=== PATIENT | male | born 1945 | race Caucasian/White ===

== ENCOUNTER 2022-02-07 19:24 | Emergency (ER) | payer BC ==
[2022-02-07 19:32] VITALS: BP 164/81; PULSE 85; RESP 16; TEMP 99.4; BMI 15.0
[2022-02-07] MEDS ORDERED: CIPROFLOXACIN 500 MG TABLET (RESTRICTED TO ID) PO ONE (20:11)
[2022-02-07 20:24] LABS: EPITHELIAL CELLS FEW /hpf
[2022-02-07 20:34] LABS: HEMOGLOBIN 11.6 G/dL (11.7-16.9); MCHC 34.2 g/dl (32.0-35.9); MEAN CELL VOLUME 93.5 fl (80-96); MEAN PLT VOLUME 9.1 fl (7.5-11.1); PLATELET COUNT 347.6 10^3/uL (134-434); RBC 3.64 10^6/uL (4.00-5.60); WHITE BLOOD COUNT 11.1 10^3/uL (4.0-10.8)
[2022-02-07] MEDS ORDERED: CIPROFLOXACIN 400 MG/D5W 400 MG/200 ML IVPB IVPB ONE (20:46)
[2022-02-07 21:03] LABS: ALBUMIN 4.6 g/dl (3.4-5.0); BILIRUBIN,TOTAL 0.8 mg/dl (0.2-1); CALCIUM 9.7 mg/dl (8.5-10); CREATININE 0.9 mg/dl (0.55-1.3); TOT PROT 7.4 g/dl (6.4-8.2)
[2022-02-07 22:35] LABS: PLATELET ESTIMATE ADEQUATE
== END 2022-02-07 22:28 | disposition home or self-care (01) ==
LOC: FER 19:24
PROC: 3E033GC Introduction of Other Therapeutic Substance into Peripheral Vein, Percutaneous Approach (ICD-10-PCS; principal; 2022-02-07)
DX: R33.9 Retention of urine, unspecified (principal)
CPT/HCPCS: 0241U-QW; 36415; 74176-TC; 80053; 81003; 81015; 85025; 87086; 87186; 99285-25

== ENCOUNTER 2022-03-08 17:17 | Emergency (ER) | payer BC ==
[2022-03-08 18:28] VITALS: BP 172/90; PULSE 93; RESP 18; TEMP 99; BMI 15.0
== END 2022-03-08 19:10 | disposition home or self-care (01) ==
LOC: FER 17:17
DX: N39.0 Urinary tract infection, site not specified (principal); T83.028A Displacement of other urinary catheter, initial encounter
CPT/HCPCS: 81003; 81015; 87086; 99283-25

== ENCOUNTER 2022-11-03 14:42 | Inpatient (IN) | payer BC, OTHER ==
[2022-11-03] MEDS ORDERED: SODIUM CHLORIDE 1,000 ML IV STA (14:51)
[2022-11-03 15:21] LABS: HEMATOCRIT 33.8 % (35.4-49); HEMOGLOBIN 11.3 G/dL (11.7-16.9); MCH 32.7 pg (25.7-33.7); MCHC 33.5 g/dl (32.0-35.9); MEAN CELL VOLUME 97.6 fl (80-96); MEAN PLT VOLUME 10.5 fl (7.5-11.1); PLATELET COUNT 176.7 10^3/uL (134-434); RBC 3.46 10^6/uL (4.00-5.60); RDW 14.4 % (11.9-15.9); WHITE BLOOD COUNT 13.9 10^3/uL (4.0-10.8)
[2022-11-03 15:32] LABS: ALBUMIN 3.9 g/dl (3.4-5.0); BILIRUBIN,TOTAL 0.8 mg/dl (0.2-1); BLOOD UREA NITROGEN 91.6 mg/dl (7-18); CALCIUM 8.7 mg/dl (8.5-10.1); CREATININE 5.3 mg/dl (0.6-1.3); POTASSIUM 3.7 mmol/L (3.5-5.1); SGOT/AST 16.2 U/L (15-37); SGPT/ALT 3.8 U/L (7-52); TOT PROT 6.3 g/dl (6.4-8.2)
[2022-11-03] MEDS ORDERED: SODIUM CHLORIDE 1,000 ML IV SCH (16:15)
[2022-11-03 16:21] LABS: EPITHELIAL CELLS RARE /hpf
[2022-11-04] MEDS: CARBIDOPA/LEVODOPA 25/100 TABLET (FP) PO SCH ×2 (10:49→18:01)
[2022-11-04 11:06] LABS: HEMATOCRIT 33.8 % (35.4-49); HEMOGLOBIN 11.3 G/dL (11.7-16.9); MCH 32.8 pg (25.7-33.7); MCHC 33.4 g/dl (32.0-35.9); MEAN CELL VOLUME 98.4 fl (80-96); MEAN PLT VOLUME 10.7 fl (7.5-11.1); PLATELET COUNT 152.3 10^3/uL (134-434); RBC 3.44 10^6/uL (4.00-5.60); RDW 15.6 % (11.9-15.9); WHITE BLOOD COUNT 11.5 10^3/uL (4.0-10.8)
[2022-11-04 11:22] LABS: ALBUMIN 3.3 g/dl (3.4-5.0); BILIRUBIN,TOTAL 0.8 mg/dl (0.2-1); CALCIUM 8.5 mg/dl (8.5-10.1); CREATININE 1.7 mg/dl (0.6-1.3); POTASSIUM 3.5 mmol/L (3.5-5.1); SGOT/AST 24.2 U/L (15-37); SGPT/ALT 10.4 U/L (7-52); TOT PROT 5.3 g/dl (6.4-8.2)
[2022-11-04] MEDS: POTASSIUM CHLORIDE 10 MEQ in SODIUM CHLORIDE 0.45% 1,000 ML IVPB SCH (22:32)
[2022-11-05 08:09] LABS: ALBUMIN 3.3 g/dl (3.4-5.0); BILIRUBIN,TOTAL 0.8 mg/dl (0.2-1); BLOOD UREA NITROGEN 50.7 mg/dl (7-18); CALCIUM 8.5 mg/dl (8.5-10.1); CREATININE 1.2 mg/dl (0.6-1.3); POTASSIUM 3.7 mmol/L (3.5-5.1); SGOT/AST 19.9 U/L (15-37); SGPT/ALT 13.7 U/L (7-52); TOT PROT 5.2 g/dl (6.4-8.2)
[2022-11-05] MEDS: POTASSIUM CHLORIDE 10 MEQ in SODIUM CHLORIDE 0.45% 1,000 ML IVPB SCH (08:20)
[2022-11-05] MEDS: CARBIDOPA/LEVODOPA 25/100 TABLET (FP) PO SCH ×3 (08:20→21:04)
[2022-11-05] MEDS: POTASSIUM CHLORIDE 10 MEQ in DEXTROSE 5%-WATER - 1,000 ML IV SCH (09:42)
[2022-11-05] MEDS: amLODIPine BESYLATE 5 MG TABLET (FP) PO SCH (09:42)
[2022-11-05 09:46] LABS: HEMATOCRIT 33.8 % (35.4-49); HEMOGLOBIN 10.9 GM/dL (11.7-16.9); MCH 30.9 pg (25.7-33.7); MCHC 32.3 g/dl (32.0-35.9); MEAN CELL VOLUME 95.6 fl (80-96); MEAN PLT VOLUME 11.5 fl (7.5-11.1); PLATELET COUNT 157 10^3/uL (134-434); RBC 3.53 M/mm3 (4.00-5.60); RDW 14.2 % (11.9-15.9)
[2022-11-05] MEDS ORDERED: OLANZapine 2.5 MG TABLET PO SCH (10:00)
[2022-11-05 10:34] LABS: ANISOCYTOSIS 2+; MACROCYTOSIS 2+
[2022-11-05 10:56] VITALS: BMI 14.2
[2022-11-05] MEDS: AMINO ACIDS/PROTEIN HYDROLYS 30 ML LIQUID.PKT PO SCH ×2 (12:32→16:56)
[2022-11-05 16:52] LABS: BLOOD UREA NITROGEN 45.4 mg/dl (7-18); CREATININE 1.1 mg/dl (0.6-1.3)
[2022-11-05 16:53] LABS: CALCIUM 8.5 mg/dl (8.5-10.1); POTASSIUM 3.7 mmol/L (3.5-5.1)
[2022-11-05] MEDS: HEPARIN NA (PORCINE) 5,000 UNITS/ML 1ML VIAL SQ SCH (21:04)
[2022-11-05 23:19] LABS: LACTIC ACID 2.5 mmol/L (0.4-2.0)
[2022-11-06] MEDS: CARBIDOPA/LEVODOPA 25/100 TABLET (FP) PO SCH ×4 (06:26→18:03)
[2022-11-06] MEDS ORDERED: ACETAMINOPHEN 500 MG TABLET (FP) PO PRN (07:09)
[2022-11-06] MEDS ORDERED: CEFTRIAXONE 1 GM in DEXTROSE 5%-WATER - 50 ML IVPB ONE (07:30)
[2022-11-06 08:03] LABS: BILIRUBIN,TOTAL 0.9 mg/dl (0.2-1); BLOOD UREA NITROGEN 36.8 mg/dl (7-18); CREATININE 0.9 mg/dl (0.6-1.3); MAGNESIUM 2.1 mg/dL (1.8-2.4); PHOSPHOROUS 1.93 (2.5-4.9); POTASSIUM 3.6 mmol/L (3.5-5.1); SGOT/AST 13.7 U/L (15-37); TOT PROT 4.8 g/dl (6.4-8.2)
[2022-11-06 08:13] LABS: EPITHELIAL CELLS RARE /hpf
[2022-11-06] MEDS: AMINO ACIDS/PROTEIN HYDROLYS 30 ML LIQUID.PKT PO SCH ×3 (08:30→18:03)
[2022-11-06] MEDS ORDERED: POTASSIUM PHOSPHATE 15 MM in DEXTROSE 5%-WATER - 250 ML IVPB ONE (09:15)
[2022-11-06] MEDS: amLODIPine BESYLATE 5 MG TABLET (FP) PO SCH (09:53)
[2022-11-06] MEDS: HEPARIN NA (PORCINE) 5,000 UNITS/ML 1ML VIAL SQ SCH ×2 (09:54→21:35)
[2022-11-06] MEDS: POTASSIUM CHLORIDE 10 MEQ in DEXTROSE 5%-WATER - 1,000 ML IV SCH ×2 (09:55→11:46)
[2022-11-06 10:33] LABS: BASO % 0.6 % (0-2.0); EOS % 0.1 % (0-4.5); HEMATOCRIT 31.5 % (35.4-49); HEMOGLOBIN 10.1 GM/dL (11.7-16.9); LYMPH % 5.5 % (8-40); MCH 30.9 pg (25.7-33.7); MCHC 32.2 g/dl (32.0-35.9); MEAN CELL VOLUME 95.9 fl (80-96); MEAN PLT VOLUME 11.7 fl (7.5-11.1); MONO % 13.9 % (3.8-10.2); NEUT % 79.9 % (42.8-82.8); PLATELET COUNT 148 10^3/uL (134-434); RBC 3.28 M/mm3 (4.00-5.60); RDW 14.2 % (11.9-15.9); WHITE BLOOD COUNT 14.4 K/mm3 (4.0-10.0)
[2022-11-06] MEDS ORDERED: NAPH,MB-DB/K PH,MBDB POWDER PACKET PO ONE (11:27)
[2022-11-06] MEDS: ZINC SULFATE 220 MG CAPSULE (FP) PO SCH (11:41)
[2022-11-06] MEDS: LACTOBACILLUS ACIDOPHILUS 1 TABLET PO SCH (11:41)
[2022-11-06] MEDS: ASCORBIC ACID 500 MG TABLET (FP) PO SCH (11:41)
[2022-11-06] MEDS ORDERED: VANCOMYCIN 1 GM in D5W (PRE-DOCKED) 1,000 MG/250 ML (RESTRICTED TO ID ONLY IVPB ONE (22:14)
[2022-11-06] MEDS ORDERED: VANCOMYCIN/WATER FOR INJ (PEG) 1,000 MG/200 ML BAG IVPB ONE (22:30)
[2022-11-07] MEDS: CARBIDOPA/LEVODOPA 25/100 TABLET (FP) PO SCH ×5 (06:36→19:09)
[2022-11-07] MEDS ORDERED: VANCOMYCIN 750 MG in DEXTROSE 5%-WATER - 150 ML IVPB ONE (07:30)
[2022-11-07 07:47] LABS: BILIRUBIN,TOTAL 0.9 mg/dl (0.2-1); BLOOD UREA NITROGEN 29.6 mg/dl (7-18); CALCIUM 7.8 mg/dl (8.5-10.1); PHOSPHOROUS 2.65 (2.5-4.9); POTASSIUM 3.5 mmol/L (3.5-5.1); SGOT/AST 15.2 U/L (15-37); SGPT/ALT 8.7 U/L (7-52); TOT PROT 5.1 g/dl (6.4-8.2)
[2022-11-07] MEDS: AMINO ACIDS/PROTEIN HYDROLYS 30 ML LIQUID.PKT PO SCH ×4 (08:13→18:12)
[2022-11-07 09:10] LABS: BASO % 0.8 % (0-2.0); EOS % 0.5 % (0-4.5); HEMATOCRIT 31.3 % (35.4-49); HEMOGLOBIN 9.9 GM/dL (11.7-16.9); LYMPH % 7.3 % (8-40); MCH 30.5 pg (25.7-33.7); MCHC 31.7 g/dl (32.0-35.9); MEAN PLT VOLUME 11.9 fl (7.5-11.1); MONO % 9.8 % (3.8-10.2); NEUT % 81.6 % (42.8-82.8); PLATELET COUNT 182 10^3/uL (134-434); RBC 3.26 M/mm3 (4.00-5.60); RDW 14.2 % (11.9-15.9)
[2022-11-07] MEDS: ZINC SULFATE 220 MG CAPSULE (FP) PO SCH (10:16)
[2022-11-07] MEDS: LACTOBACILLUS ACIDOPHILUS 1 TABLET PO SCH (10:17)
[2022-11-07] MEDS: amLODIPine BESYLATE 5 MG TABLET (FP) PO SCH (10:17)
[2022-11-07] MEDS: HEPARIN NA (PORCINE) 5,000 UNITS/ML 1ML VIAL SQ SCH ×2 (10:19→22:30)
[2022-11-07] MEDS: ASCORBIC ACID 500 MG TABLET (FP) PO SCH (10:20)
[2022-11-07] MEDS: CEFTRIAXONE 1 GM in DEXTROSE 5%-WATER - 50 ML IVPB SCH (10:21)
[2022-11-07] MEDS: POTASSIUM CHLORIDE 10 MEQ in DEXTROSE 5%-WATER - 1,000 ML IV SCH (12:05)
[2022-11-07] MEDS ORDERED: POTASSIUM CHLORIDE ORAL LIQUID 20 MEQ/15 ML PO ONE ×2 (18:53→22:45)
[2022-11-07] MEDS ORDERED: VANCOMYCIN/WATER FOR INJ (PEG) 750 MG/150 ML BAG IVPB ONE (23:00)
[2022-11-07] MEDS: VANCOMYCIN/WATER FOR INJ (PEG) 750 MG/150 ML BAG IVPB SCH (23:30)
[2022-11-08] MEDS: CARBIDOPA/LEVODOPA 25/100 TABLET (FP) PO SCH (05:15)
[2022-11-08] MEDS: POTASSIUM CHLORIDE 10 MEQ in DEXTROSE 5%-WATER - 1,000 ML IV SCH ×3 (05:15→21:44)
[2022-11-08 07:50] LABS: ALBUMIN 2.9 g/dl (3.4-5.0); BILIRUBIN,TOTAL 0.7 mg/dl (0.2-1); BLOOD UREA NITROGEN 22.9 mg/dl (7-18); CALCIUM 7.8 mg/dl (8.5-10.1); CREATININE 0.8 mg/dl (0.6-1.3); MAGNESIUM 1.9 mg/dL (1.8-2.4); PHOSPHOROUS 2.35 (2.5-4.9); POTASSIUM 3.7 mmol/L (3.5-5.1); SGOT/AST 17.5 U/L (15-37)
[2022-11-08] MEDS: AMINO ACIDS/PROTEIN HYDROLYS 30 ML LIQUID.PKT PO SCH (08:28)
[2022-11-08] MEDS ORDERED: POTASSIUM PHOSPHATE 15 MM in DEXTROSE 5%-WATER - 250 ML IVPB ONE (08:40)
[2022-11-08 10:05] LABS: BASO % 0.2 % (0-2.0); EOS % 1.3 % (0-4.5); HEMATOCRIT 27.7 % (35.4-49); HEMOGLOBIN 8.9 GM/dL (11.7-16.9); LYMPH % 6.8 % (8-40); MCH 30.7 pg (25.7-33.7); MEAN CELL VOLUME 95.7 fl (80-96); MEAN PLT VOLUME 11.5 fl (7.5-11.1); MONO % 7.9 % (3.8-10.2); NEUT % 83.8 % (42.8-82.8); PLATELET COUNT 223 10^3/uL (134-434); RBC 2.89 M/mm3 (4.00-5.60); RDW 14.4 % (11.9-15.9); WHITE BLOOD COUNT 15.2 K/mm3 (4.0-10.0)
[2022-11-08] MEDS ORDERED: ACETAMINOPHEN 1000 MG/100 ML BAG IVPB ONE (10:15)
[2022-11-08] MEDS: HEPARIN NA (PORCINE) 5,000 UNITS/ML 1ML VIAL SQ SCH ×2 (10:31→21:44)
[2022-11-08] MEDS: CEFTRIAXONE 1 GM in DEXTROSE 5%-WATER - 50 ML IVPB SCH (10:43)
[2022-11-08] MEDS ORDERED: AMINO ACIDS/PROTEIN HYDROLYS 30 ML LIQUID.PKT NGT SCH (11:17)
[2022-11-08] MEDS: COLLAGENASE CLOSTRIDIUM HIST. 30 GRAMS TUBE TP SCH (12:06)
[2022-11-08] MEDS: CARBIDOPA/LEVODOPA 25/100 TABLET (FP) NGT SCH ×2 (14:55→18:30)
[2022-11-08] MEDS ORDERED: THIAMINE HCL 200 MG/2 ML VIAL IVPB ONE (15:53)
[2022-11-08] MEDS: AMINO ACIDS/PROTEIN HYDROLYS 30 ML LIQUID.PKT NGT SCH (18:30)
[2022-11-08] MEDS: ACETAMINOPHEN 650 MG/20.3 ML ORAL SOLUTION (CUPS) NGT PRN (22:52)
[2022-11-08] MEDS ORDERED: VANCOMYCIN/WATER FOR INJ (PEG) 750 MG/150 ML BAG IVPB SCH (23:00)
[2022-11-08] MEDS: VANCOMYCIN/WATER FOR INJ (PEG) 750 MG/150 ML BAG IVPB SCH (23:22)
[2022-11-09] MEDS: CARBIDOPA/LEVODOPA 25/100 TABLET (FP) NGT SCH ×4 (05:39→17:14)
[2022-11-09 09:15] LABS: BASO % 0.7 % (0-2.0); EOS % 1.2 % (0-4.5); HEMATOCRIT 27.5 % (35.4-49); HEMOGLOBIN 8.9 GM/dL (11.7-16.9); MCH 30.9 pg (25.7-33.7); MCHC 32.5 g/dl (32.0-35.9); MEAN CELL VOLUME 95.2 fl (80-96); NEUT % 80.1 % (42.8-82.8); PLATELET COUNT 329 10^3/uL (134-434); RBC 2.89 M/mm3 (4.00-5.60); RDW 14.1 % (11.9-15.9); WHITE BLOOD COUNT 11.9 K/mm3 (4.0-10.0)
[2022-11-09] MEDS: AMINO ACIDS/PROTEIN HYDROLYS 30 ML LIQUID.PKT NGT SCH ×3 (09:25→17:14)
[2022-11-09] MEDS: CEFTRIAXONE 1 GM in DEXTROSE 5%-WATER - 50 ML IVPB SCH (09:25)
[2022-11-09] MEDS: ASCORBIC ACID 500 MG TABLET (FP) NGT SCH (09:26)
[2022-11-09] MEDS: LACTOBACILLUS ACIDOPHILUS 1 TABLET NGT SCH (09:26)
[2022-11-09] MEDS: ZINC SULFATE 220 MG CAPSULE (FP) NGT SCH (09:26)
[2022-11-09] MEDS: amLODIPine BESYLATE 5 MG TABLET (FP) NGT SCH (09:26)
[2022-11-09] MEDS: POLYETHYLENE GLYCOL (HEALTHYLAX) 3350 17 GM PACKET NGT SCH (09:27)
[2022-11-09 09:29] LABS: POTASSIUM 3.9 mmol/L (3.5-5.1)
[2022-11-09] MEDS: POTASSIUM CHLORIDE 10 MEQ in DEXTROSE 5%-WATER - 1,000 ML IV SCH ×3 (09:31→22:24)
[2022-11-09] MEDS: HEPARIN NA (PORCINE) 5,000 UNITS/ML 1ML VIAL SQ SCH ×2 (09:32→22:22)
[2022-11-09 09:33] LABS: CALCIUM 7.8 mg/dL (8.5-10.1)
[2022-11-09 09:34] LABS: ALBUMIN 2.4 g/dl (3.4-5.0); BLOOD UREA NITROGEN 26.3 mg/dL (7-18); MAGNESIUM 1.9 mg/dL (1.8-2.4)
[2022-11-09 09:37] LABS: CREATININE 0.9 mg/dL (0.55-1.3); PHOSPHOROUS 2.6 mg/dL (2.5-4.9)
[2022-11-09 09:39] LABS: BILIRUBIN,TOTAL 0.8 mg/dL (0.2-1); TOT PROT 5.3 g/dl (6.4-8.2)
[2022-11-09] MEDS ORDERED: POLYETHYLENE GLYCOL (HEALTHYLAX) 3350 17 GM PACKET GT SCH (10:00)
[2022-11-09] MEDS: THIAMINE HCL 200 MG/2 ML VIAL IVPB SCH (10:44)
[2022-11-09] MEDS: COLLAGENASE CLOSTRIDIUM HIST. 30 GRAMS TUBE TP SCH (10:44)
[2022-11-09] MEDS: DAPTOMYCIN IVPB SCH (17:14)
[2022-11-09] MEDS: SODIUM CHLORIDE IVPB SCH (17:14)
[2022-11-10] MEDS: POTASSIUM CHLORIDE 10 MEQ in DEXTROSE 5%-WATER - 1,000 ML IV SCH ×2 (03:05→11:07)
[2022-11-10] MEDS: CARBIDOPA/LEVODOPA 25/100 TABLET (FP) NGT SCH ×4 (05:37→17:34)
[2022-11-10 10:14] LABS: BASO % 0.3 % (0-2.0); HEMATOCRIT 26.9 % (35.4-49); HEMOGLOBIN 8.7 GM/dL (11.7-16.9); LYMPH % 8.5 % (8-40); MCH 29.7 pg (25.7-33.7); MCHC 32.3 g/dl (32.0-35.9); MEAN PLT VOLUME 10.4 fl (7.5-11.1); MONO % 6.2 % (3.8-10.2); PLATELET COUNT 390 10^3/uL (134-434); RBC 2.92 M/mm3 (4.00-5.60); RDW 14.3 % (11.9-15.9); WHITE BLOOD COUNT 14.5 K/mm3 (4.0-10.0)
[2022-11-10] MEDS: THIAMINE HCL 200 MG/2 ML VIAL IVPB SCH (10:44)
[2022-11-10] MEDS: ZINC SULFATE 220 MG CAPSULE (FP) NGT SCH (10:44)
[2022-11-10 11:04] LABS: POTASSIUM 3.8 mmol/L (3.5-5.1)
[2022-11-10] MEDS: LACTOBACILLUS ACIDOPHILUS 1 TABLET NGT SCH (11:06)
[2022-11-10] MEDS: AMINO ACIDS/PROTEIN HYDROLYS 30 ML LIQUID.PKT NGT SCH ×3 (11:06→17:34)
[2022-11-10] MEDS: ASCORBIC ACID 500 MG TABLET (FP) NGT SCH (11:06)
[2022-11-10] MEDS: amLODIPine BESYLATE 5 MG TABLET (FP) NGT SCH (11:06)
[2022-11-10] MEDS: POLYETHYLENE GLYCOL (HEALTHYLAX) 3350 17 GM PACKET NGT SCH (11:06)
[2022-11-10] MEDS: HEPARIN NA (PORCINE) 5,000 UNITS/ML 1ML VIAL SQ SCH ×2 (11:06→22:17)
[2022-11-10 11:07] LABS: CALCIUM 8.3 mg/dL (8.5-10.1)
[2022-11-10 11:08] LABS: ALBUMIN 2.5 g/dl (3.4-5.0); BLOOD UREA NITROGEN 25.3 mg/dL (7-18); MAGNESIUM 1.9 mg/dL (1.8-2.4)
[2022-11-10 11:11] LABS: CREATININE 0.8 mg/dL (0.55-1.3); PHOSPHOROUS 2.4 mg/dL (2.5-4.9)
[2022-11-10 11:12] LABS: BILIRUBIN,TOTAL 0.5 mg/dL (0.2-1); TOT PROT 5.5 g/dl (6.4-8.2)
[2022-11-10] MEDS ORDERED: POTASSIUM PHOSPHATE 15 MM in DEXTROSE 5%-WATER - 250 ML IVPB ONE (13:45)
[2022-11-10] MEDS: SODIUM CHLORIDE IVPB SCH (17:30)
[2022-11-10] MEDS: DAPTOMYCIN IVPB SCH (17:30)
[2022-11-10] MEDS: COLLAGENASE CLOSTRIDIUM HIST. 30 GRAMS TUBE TP SCH (17:35)
[2022-11-10] MEDS: ACETAMINOPHEN 650 MG/20.3 ML ORAL SOLUTION (CUPS) NGT PRN (22:17)
[2022-11-11] MEDS: CARBIDOPA/LEVODOPA 25/100 TABLET (FP) NGT SCH ×4 (05:55→18:22)
[2022-11-11] MEDS: THIAMINE HCL 200 MG/2 ML VIAL IVPB SCH (10:33)
[2022-11-11] MEDS: POLYETHYLENE GLYCOL (HEALTHYLAX) 3350 17 GM PACKET NGT SCH (10:34)
[2022-11-11] MEDS: AMINO ACIDS/PROTEIN HYDROLYS 30 ML LIQUID.PKT NGT SCH ×3 (10:34→17:31)
[2022-11-11] MEDS: amLODIPine BESYLATE 5 MG TABLET (FP) NGT SCH (10:35)
[2022-11-11] MEDS: ZINC SULFATE 220 MG CAPSULE (FP) NGT SCH (10:35)
[2022-11-11 10:36] LABS: HEMATOCRIT 25.3 % (35.4-49); HEMOGLOBIN 8.2 GM/dL (11.7-16.9); MCH 30.6 pg (25.7-33.7); MCHC 32.3 g/dl (32.0-35.9); MEAN CELL VOLUME 94.6 fl (80-96); PLATELET COUNT 381 10^3/uL (134-434); RBC 2.67 M/mm3 (4.00-5.60); RDW 14.3 % (11.9-15.9); WHITE BLOOD COUNT 16.7 K/mm3 (4.0-10.0)
[2022-11-11] MEDS: LACTOBACILLUS ACIDOPHILUS 1 TABLET NGT SCH (10:36)
[2022-11-11] MEDS: ASCORBIC ACID 500 MG TABLET (FP) NGT SCH (10:36)
[2022-11-11] MEDS: COLLAGENASE CLOSTRIDIUM HIST. 30 GRAMS TUBE TP SCH (10:37)
[2022-11-11] MEDS: HEPARIN NA (PORCINE) 5,000 UNITS/ML 1ML VIAL SQ SCH ×2 (10:37→22:52)
[2022-11-11 11:04] LABS: ALBUMIN 2.3 g/dl (3.4-5.0); BLOOD UREA NITROGEN 40.4 mg/dL (7-18); CALCIUM 7.7 mg/dL (8.5-10.1)
[2022-11-11 11:07] LABS: CREATININE 1.2 mg/dL (0.55-1.3); PHOSPHOROUS 3.8 mg/dL (2.5-4.9)
[2022-11-11 11:09] LABS: BILIRUBIN,TOTAL 0.4 mg/dL (0.2-1); TOT PROT 5.1 g/dl (6.4-8.2)
[2022-11-11] MEDS ORDERED: LACTATED RINGERS SOLUTION 1,000 ML/1,000 ML INFUS.BAG IV SCH (14:00)
[2022-11-11 14:06] LABS: RETICULOCYTES 0.52 % (0.5-1.5)
[2022-11-11] MEDS: SODIUM CHLORIDE IVPB SCH (17:31)
[2022-11-11] MEDS: DAPTOMYCIN IVPB SCH (17:31)
[2022-11-12] MEDS: CARBIDOPA/LEVODOPA 25/100 TABLET (FP) NGT SCH ×4 (06:05→18:05)
[2022-11-12 09:15] LABS: HEMATOCRIT 28.3 % (35.4-49); MCH 30.1 pg (25.7-33.7); MCHC 31.9 g/dl (32.0-35.9); MEAN CELL VOLUME 94.3 fl (80-96); MEAN PLT VOLUME 11.1 fl (7.5-11.1); PLATELET COUNT 512 10^3/uL (134-434); RDW 14.4 % (11.9-15.9); WHITE BLOOD COUNT 20.1 K/mm3 (4.0-10.0)
[2022-11-12 09:41] LABS: POTASSIUM 4.9 mmol/L (3.5-5.1)
[2022-11-12 10:07] LABS: CALCIUM 8.8 mg/dL (8.5-10.1)
[2022-11-12 10:08] LABS: ALBUMIN 2.6 g/dl (3.4-5.0); MAGNESIUM 2.4 mg/dL (1.8-2.4)
[2022-11-12 10:09] LABS: BILIRUBIN,TOTAL 0.4 mg/dL (0.2-1)
[2022-11-12 10:11] LABS: CREATININE 1.2 mg/dL (0.55-1.3)
[2022-11-12] MEDS: POLYETHYLENE GLYCOL (HEALTHYLAX) 3350 17 GM PACKET NGT SCH (10:21)
[2022-11-12] MEDS: AMINO ACIDS/PROTEIN HYDROLYS 30 ML LIQUID.PKT NGT SCH ×3 (10:21→18:06)
[2022-11-12] MEDS: amLODIPine BESYLATE 5 MG TABLET (FP) NGT SCH (10:21)
[2022-11-12] MEDS: LACTOBACILLUS ACIDOPHILUS 1 TABLET NGT SCH (10:21)
[2022-11-12] MEDS: ASCORBIC ACID 500 MG TABLET (FP) NGT SCH (10:22)
[2022-11-12] MEDS: ZINC SULFATE 220 MG CAPSULE (FP) NGT SCH (10:22)
[2022-11-12] MEDS: COLLAGENASE CLOSTRIDIUM HIST. 30 GRAMS TUBE TP SCH (10:33)
[2022-11-12] MEDS: HEPARIN NA (PORCINE) 5,000 UNITS/ML 1ML VIAL SQ SCH ×2 (10:34→21:45)
[2022-11-12] MEDS: DAPTOMYCIN IVPB SCH (16:39)
[2022-11-12] MEDS: SODIUM CHLORIDE IVPB SCH (16:39)
[2022-11-13] MEDS: CARBIDOPA/LEVODOPA 25/100 TABLET (FP) NGT SCH ×4 (06:49→18:19)
[2022-11-13] MEDS: AMINO ACIDS/PROTEIN HYDROLYS 30 ML LIQUID.PKT NGT SCH ×3 (10:08→16:33)
[2022-11-13] MEDS: amLODIPine BESYLATE 5 MG TABLET (FP) NGT SCH (10:08)
[2022-11-13] MEDS: LACTOBACILLUS ACIDOPHILUS 1 TABLET NGT SCH (10:08)
[2022-11-13] MEDS: ASCORBIC ACID 500 MG TABLET (FP) NGT SCH (10:09)
[2022-11-13] MEDS: ZINC SULFATE 220 MG CAPSULE (FP) NGT SCH (10:10)
[2022-11-13] MEDS: POLYETHYLENE GLYCOL (HEALTHYLAX) 3350 17 GM PACKET NGT SCH (10:11)
[2022-11-13] MEDS: HEPARIN NA (PORCINE) 5,000 UNITS/ML 1ML VIAL SQ SCH ×2 (10:11→21:23)
[2022-11-13] MEDS: COLLAGENASE CLOSTRIDIUM HIST. 30 GRAMS TUBE TP SCH (10:21)
[2022-11-13 10:24] LABS: POTASSIUM 4.6 mmol/L (3.5-5.1)
[2022-11-13 10:26] LABS: CALCIUM 8.3 mg/dL (8.5-10.1)
[2022-11-13 10:27] LABS: ALBUMIN 2.2 g/dl (3.4-5.0); BLOOD UREA NITROGEN 34.5 mg/dL (7-18)
[2022-11-13 10:30] LABS: CREATININE 0.9 mg/dL (0.55-1.3)
[2022-11-13 10:31] LABS: BILIRUBIN,TOTAL 0.3 mg/dL (0.2-1); TOT PROT 5.1 g/dl (6.4-8.2)
[2022-11-13 10:57] LABS: BASO % 0.5 % (0-2.0); EOS % 1.1 % (0-4.5); HEMATOCRIT 24.9 % (35.4-49); LYMPH % 7.1 % (8-40); MCHC 32.3 g/dl (32.0-35.9); MEAN CELL VOLUME 92.9 fl (80-96); MEAN PLT VOLUME 9.6 fl (7.5-11.1); MONO % 6.3 % (3.8-10.2); PLATELET COUNT 504 10^3/uL (134-434); RBC 2.68 M/mm3 (4.00-5.60); RDW 14.7 % (11.9-15.9); WHITE BLOOD COUNT 15.9 K/mm3 (4.0-10.0)
[2022-11-13] MEDS ORDERED: POTASSIUM PHOSPHATE 30 MM in DEXTROSE 5%-WATER - 500 ML IVPB ONE (12:49)
[2022-11-13] MEDS ORDERED: SODIUM CHLORIDE 0.45%/POT 20 MEQ/1,000 ML INFUS.BAG IV SCH (13:00)
[2022-11-13] MEDS: SODIUM CHLORIDE 0.45% 1,000 ML IV SCH (13:59)
[2022-11-13] MEDS: DAPTOMYCIN IVPB SCH (16:32)
[2022-11-13] MEDS: SODIUM CHLORIDE IVPB SCH (16:32)
[2022-11-13] MEDS: ACETAMINOPHEN 650 MG/20.3 ML ORAL SOLUTION (CUPS) NGT PRN (21:23)
[2022-11-14] MEDS: SODIUM CHLORIDE 0.45% 1,000 ML IV SCH ×3 (04:01→15:39)
[2022-11-14] MEDS: CARBIDOPA/LEVODOPA 25/100 TABLET (FP) NGT SCH ×4 (05:17→18:09)
[2022-11-14] MEDS: AMINO ACIDS/PROTEIN HYDROLYS 30 ML LIQUID.PKT NGT SCH ×3 (08:34→17:35)
[2022-11-14] MEDS: POLYETHYLENE GLYCOL (HEALTHYLAX) 3350 17 GM PACKET NGT SCH (09:50)
[2022-11-14] MEDS: ZINC SULFATE 220 MG CAPSULE (FP) NGT SCH (09:53)
[2022-11-14] MEDS: ASCORBIC ACID 500 MG TABLET (FP) NGT SCH (09:53)
[2022-11-14] MEDS: LACTOBACILLUS ACIDOPHILUS 1 TABLET NGT SCH (09:54)
[2022-11-14] MEDS: amLODIPine BESYLATE 5 MG TABLET (FP) NGT SCH (09:54)
[2022-11-14] MEDS: HEPARIN NA (PORCINE) 5,000 UNITS/ML 1ML VIAL SQ SCH ×2 (09:54→21:25)
[2022-11-14] MEDS ORDERED: POTASSIUM CHLORIDE ORAL LIQUID 20 MEQ/15 ML GT SCH (10:00)
[2022-11-14] MEDS ORDERED: POTASSIUM CHLORIDE ORAL LIQUID 20 MEQ/15 ML PO SCH (10:00)
[2022-11-14 10:37] LABS: HEMATOCRIT 25.9 % (35.4-49); HEMOGLOBIN 8.2 GM/dL (11.7-16.9); MCH 30.2 pg (25.7-33.7); MCHC 31.5 g/dl (32.0-35.9); MEAN CELL VOLUME 95.8 fl (80-96); MEAN PLT VOLUME 10.6 fl (7.5-11.1); PLATELET COUNT 541 10^3/uL (134-434); RDW 14.3 % (11.9-15.9); WHITE BLOOD COUNT 13.6 K/mm3 (4.0-10.0)
[2022-11-14 11:14] LABS: POTASSIUM 4.4 mmol/L (3.5-5.1)
[2022-11-14 11:31] LABS: ALBUMIN 2.4 g/dl (3.4-5.0); BLOOD UREA NITROGEN 22.6 mg/dL (7-18); CALCIUM 8.4 mg/dL (8.5-10.1)
[2022-11-14 11:34] LABS: CREATININE 0.7 mg/dL (0.55-1.3); PHOSPHOROUS 2.7 mg/dL (2.5-4.9)
[2022-11-14 11:36] LABS: BILIRUBIN,TOTAL 0.3 mg/dL (0.2-1); TOT PROT 5.5 g/dl (6.4-8.2)
[2022-11-14] MEDS: COLLAGENASE CLOSTRIDIUM HIST. 30 GRAMS TUBE TP SCH (11:42)
[2022-11-14] MEDS: DAPTOMYCIN IVPB SCH (16:23)
[2022-11-14] MEDS: SODIUM CHLORIDE IVPB SCH (16:23)
[2022-11-15] MEDS: CARBIDOPA/LEVODOPA 25/100 TABLET (FP) PO SCH ×4 (05:31→17:31)
[2022-11-15] MEDS: AMINO ACIDS/PROTEIN HYDROLYS 30 ML LIQUID.PKT PO SCH ×3 (09:00→17:12)
[2022-11-15 09:59] LABS: HEMATOCRIT 25.8 % (35.4-49); HEMOGLOBIN 8.3 GM/dL (11.7-16.9); MCH 30.3 pg (25.7-33.7); MCHC 32.1 g/dl (32.0-35.9); MEAN CELL VOLUME 94.5 fl (80-96); MEAN PLT VOLUME 10.6 fl (7.5-11.1); PLATELET COUNT 491 10^3/uL (134-434); RBC 2.73 M/mm3 (4.00-5.60); WHITE BLOOD COUNT 11.4 K/mm3 (4.0-10.0)
[2022-11-15] MEDS: VANCOMYCIN/WATER FOR INJ (PEG) 750 MG/150 ML BAG IVPB SCH (10:07)
[2022-11-15] MEDS: amLODIPine BESYLATE 5 MG TABLET (FP) PO SCH (10:08)
[2022-11-15 10:49] LABS: POTASSIUM 4.2 mmol/L (3.5-5.1)
[2022-11-15] MEDS: HEPARIN NA (PORCINE) 5,000 UNITS/ML 1ML VIAL SQ SCH ×2 (10:51→21:47)
[2022-11-15 11:10] LABS: CALCIUM 8.3 mg/dL (8.5-10.1)
[2022-11-15 11:11] LABS: ALBUMIN 2.3 g/dl (3.4-5.0); BLOOD UREA NITROGEN 20.2 mg/dL (7-18)
[2022-11-15 11:14] LABS: CREATININE 0.6 mg/dL (0.55-1.3)
[2022-11-15 11:15] LABS: BILIRUBIN,TOTAL 0.3 mg/dL (0.2-1); TOT PROT 5.5 g/dl (6.4-8.2)
[2022-11-15] MEDS: ZINC SULFATE 220 MG CAPSULE (FP) PO SCH (11:56)
[2022-11-15] MEDS: POLYETHYLENE GLYCOL (HEALTHYLAX) 3350 17 GM PACKET PO SCH (11:56)
[2022-11-15] MEDS: ASCORBIC ACID 500 MG TABLET (FP) PO SCH (11:57)
[2022-11-15] MEDS: LACTOBACILLUS ACIDOPHILUS 1 TABLET PO SCH (11:57)
[2022-11-15] MEDS: ACETAMINOPHEN 650 MG/20.3 ML ORAL SOLUTION (CUPS) PO PRN (13:13)
[2022-11-15] MEDS: COLLAGENASE CLOSTRIDIUM HIST. 30 GRAMS TUBE TP SCH (14:10)
[2022-11-15] MEDS: SODIUM CHLORIDE 0.45% 1,000 ML IV SCH (14:17)
[2022-11-16] MEDS: CARBIDOPA/LEVODOPA 25/100 TABLET (FP) PO SCH ×4 (06:39→17:48)
[2022-11-16 08:01] LABS: HEMATOCRIT 23.6 % (35.4-49); HEMOGLOBIN 7.7 GM/dL (11.7-16.9); MCH 30.1 pg (25.7-33.7); MCHC 32.7 g/dl (32.0-35.9); MEAN CELL VOLUME 92.1 fl (80-96); MEAN PLT VOLUME 9.6 fl (7.5-11.1); PLATELET COUNT 534 10^3/uL (134-434); RBC 2.56 M/mm3 (4.00-5.60); RDW 13.9 % (11.9-15.9); WHITE BLOOD COUNT 8.3 K/mm3 (4.0-10.0)
[2022-11-16 08:20] LABS: POTASSIUM 3.9 mmol/L (3.5-5.1)
[2022-11-16 08:22] LABS: CALCIUM 8.5 mg/dL (8.5-10.1)
[2022-11-16 08:23] LABS: ALBUMIN 2.1 g/dl (3.4-5.0); BLOOD UREA NITROGEN 16.2 mg/dL (7-18); MAGNESIUM 1.9 mg/dL (1.8-2.4)
[2022-11-16 08:26] LABS: CREATININE 0.6 mg/dL (0.55-1.3); PHOSPHOROUS 2.6 mg/dL (2.5-4.9)
[2022-11-16 08:27] LABS: BILIRUBIN,TOTAL 0.7 mg/dL (0.2-1)
[2022-11-16 08:28] LABS: TOT PROT 5.2 g/dl (6.4-8.2)
[2022-11-16] MEDS: HEPARIN NA (PORCINE) 5,000 UNITS/ML 1ML VIAL SQ SCH ×2 (09:51→21:27)
[2022-11-16] MEDS: ZINC SULFATE 220 MG CAPSULE (FP) PO SCH (09:51)
[2022-11-16] MEDS: LACTOBACILLUS ACIDOPHILUS 1 TABLET PO SCH (09:51)
[2022-11-16] MEDS: POLYETHYLENE GLYCOL (HEALTHYLAX) 3350 17 GM PACKET PO SCH (09:51)
[2022-11-16] MEDS: AMINO ACIDS/PROTEIN HYDROLYS 30 ML LIQUID.PKT PO SCH ×3 (09:51→17:48)
[2022-11-16] MEDS: ASCORBIC ACID 500 MG TABLET (FP) PO SCH (09:52)
[2022-11-16] MEDS: COLLAGENASE CLOSTRIDIUM HIST. 30 GRAMS TUBE TP SCH (10:11)
[2022-11-16] MEDS: VANCOMYCIN/WATER FOR INJ (PEG) 750 MG/150 ML BAG IVPB SCH (10:16)
[2022-11-16] MEDS: amLODIPine BESYLATE 5 MG TABLET (FP) PO SCH (10:17)
[2022-11-17] MEDS: CARBIDOPA/LEVODOPA 25/100 TABLET (FP) PO SCH ×4 (06:20→17:25)
[2022-11-17] MEDS: AMINO ACIDS/PROTEIN HYDROLYS 30 ML LIQUID.PKT PO SCH ×3 (08:21→17:07)
[2022-11-17 09:26] LABS: BASO % 2.7 % (0-2.0); HEMATOCRIT 23.4 % (35.4-49); HEMOGLOBIN 7.6 GM/dL (11.7-16.9); LYMPH % 9.6 % (8-40); MCH 30.2 pg (25.7-33.7); MCHC 32.4 g/dl (32.0-35.9); MEAN CELL VOLUME 93.2 fl (80-96); MEAN PLT VOLUME 10.4 fl (7.5-11.1); MONO % 6.4 % (3.8-10.2); NEUT % 80.3 % (42.8-82.8); PLATELET COUNT 511 10^3/uL (134-434); RBC 2.51 M/mm3 (4.00-5.60); RDW 13.8 % (11.9-15.9); WHITE BLOOD COUNT 7.8 K/mm3 (4.0-10.0)
[2022-11-17] MEDS: LACTOBACILLUS ACIDOPHILUS 1 TABLET PO SCH (09:31)
[2022-11-17] MEDS: POLYETHYLENE GLYCOL (HEALTHYLAX) 3350 17 GM PACKET PO SCH (09:31)
[2022-11-17] MEDS: HEPARIN NA (PORCINE) 5,000 UNITS/ML 1ML VIAL SQ SCH ×2 (09:31→22:32)
[2022-11-17] MEDS: amLODIPine BESYLATE 5 MG TABLET (FP) PO SCH (09:31)
[2022-11-17] MEDS: COLLAGENASE CLOSTRIDIUM HIST. 30 GRAMS TUBE TP SCH (09:33)
[2022-11-17] MEDS: ZINC SULFATE 220 MG CAPSULE (FP) PO SCH (09:33)
[2022-11-17] MEDS: ASCORBIC ACID 500 MG TABLET (FP) PO SCH (09:34)
[2022-11-17 09:48] LABS: POTASSIUM 3.9 mmol/L (3.5-5.1)
[2022-11-17 09:54] LABS: ALBUMIN 2.4 g/dl (3.4-5.0); CALCIUM 8.7 mg/dL (8.5-10.1)
[2022-11-17 09:55] LABS: BLOOD UREA NITROGEN 15.8 mg/dL (7-18)
[2022-11-17 09:57] LABS: CREATININE 0.6 mg/dL (0.55-1.3)
[2022-11-17 09:59] LABS: BILIRUBIN,TOTAL 0.4 mg/dL (0.2-1); TOT PROT 5.5 g/dl (6.4-8.2)
[2022-11-17] MEDS: VANCOMYCIN/WATER FOR INJ (PEG) 750 MG/150 ML BAG IVPB SCH (10:07)
[2022-11-17] MEDS: ACETAMINOPHEN 650 MG/20.3 ML ORAL SOLUTION (CUPS) PO PRN (14:21)
[2022-11-18] MEDS: CARBIDOPA/LEVODOPA 25/100 TABLET (FP) PO SCH ×4 (05:44→18:23)
[2022-11-18] MEDS: AMINO ACIDS/PROTEIN HYDROLYS 30 ML LIQUID.PKT PO SCH ×3 (09:01→17:18)
[2022-11-18] MEDS: LACTOBACILLUS ACIDOPHILUS 1 TABLET PO SCH (09:01)
[2022-11-18] MEDS: amLODIPine BESYLATE 5 MG TABLET (FP) PO SCH (09:01)
[2022-11-18] MEDS: ZINC SULFATE 220 MG CAPSULE (FP) PO SCH (09:01)
[2022-11-18] MEDS: HEPARIN NA (PORCINE) 5,000 UNITS/ML 1ML VIAL SQ SCH (09:01)
[2022-11-18] MEDS: VANCOMYCIN/WATER FOR INJ (PEG) 750 MG/150 ML BAG IVPB SCH (09:01)
[2022-11-18] MEDS: ASCORBIC ACID 500 MG TABLET (FP) PO SCH (09:01)
[2022-11-18] MEDS: COLLAGENASE CLOSTRIDIUM HIST. 30 GRAMS TUBE TP SCH (09:02)
[2022-11-18] MEDS: POLYETHYLENE GLYCOL (HEALTHYLAX) 3350 17 GM PACKET PO SCH (09:26)
[2022-11-18 09:34] LABS: BASO % 3.3 % (0-2.0); EOS % 0.5 % (0-4.5); HEMATOCRIT 24.6 % (35.4-49); LYMPH % 10.2 % (8-40); MCH 30.8 pg (25.7-33.7); MCHC 32.6 g/dl (32.0-35.9); MEAN CELL VOLUME 94.5 fl (80-96); MONO % 5.5 % (3.8-10.2); NEUT % 80.5 % (42.8-82.8); PLATELET COUNT 525 10^3/uL (134-434); RBC 2.61 M/mm3 (4.00-5.60); RDW 13.9 % (11.9-15.9); WHITE BLOOD COUNT 8.8 K/mm3 (4.0-10.0)
[2022-11-18 09:49] LABS: POTASSIUM 3.8 mmol/L (3.5-5.1)
[2022-11-18 09:59] LABS: ALBUMIN 2.4 g/dl (3.4-5.0); CALCIUM 8.7 mg/dL (8.5-10.1)
[2022-11-18 10:00] LABS: BLOOD UREA NITROGEN 18.5 mg/dL (7-18)
[2022-11-18 10:02] LABS: CREATININE 0.6 mg/dL (0.55-1.3); PHOSPHOROUS 2.7 mg/dL (2.5-4.9)
[2022-11-18 10:04] LABS: BILIRUBIN,TOTAL 0.7 mg/dL (0.2-1); TOT PROT 5.5 g/dl (6.4-8.2)
[2022-11-18 14:59] VITALS: RESP 18
[2022-11-18] MEDS ORDERED: INSULIN (NOVOLOG) ASPART 100 UNITS/ML 10ML VIAL ONE (21:12)
[2022-11-19] MEDS: CARBIDOPA/LEVODOPA 25/100 TABLET (FP) PO SCH ×4 (06:10→17:53)
[2022-11-19] MEDS: AMINO ACIDS/PROTEIN HYDROLYS 30 ML LIQUID.PKT PO SCH ×3 (08:09→17:53)
[2022-11-19 09:00] LABS: HEMATOCRIT 22.6 % (35.4-49); HEMOGLOBIN 7.7 GM/dL (11.7-16.9); MCH 31.4 pg (25.7-33.7); MCHC 33.9 g/dl (32.0-35.9); MEAN CELL VOLUME 92.5 fl (80-96); MEAN PLT VOLUME 9.3 fl (7.5-11.1); PLATELET COUNT 532 10^3/uL (134-434); RBC 2.45 M/mm3 (4.00-5.60); RDW 14.3 % (11.9-15.9); WHITE BLOOD COUNT 8.8 K/mm3 (4.0-10.0)
[2022-11-19 09:19] LABS: POTASSIUM 3.6 mmol/L (3.5-5.1)
[2022-11-19 09:26] LABS: BLOOD UREA NITROGEN 19.5 mg/dL (7-18); CALCIUM 8.3 mg/dL (8.5-10.1); MAGNESIUM 1.8 mg/dL (1.8-2.4)
[2022-11-19 09:29] LABS: CREATININE 0.6 mg/dL (0.55-1.3); PHOSPHOROUS 2.9 mg/dL (2.5-4.9)
[2022-11-19] MEDS: LACTOBACILLUS ACIDOPHILUS 1 TABLET PO SCH (10:08)
[2022-11-19] MEDS: ASCORBIC ACID 500 MG TABLET (FP) PO SCH (10:08)
[2022-11-19] MEDS: ZINC SULFATE 220 MG CAPSULE (FP) PO SCH (10:08)
[2022-11-19] MEDS: POLYETHYLENE GLYCOL (HEALTHYLAX) 3350 17 GM PACKET PO SCH (10:09)
[2022-11-19] MEDS: amLODIPine BESYLATE 5 MG TABLET (FP) PO SCH (10:09)
[2022-11-19] MEDS: VANCOMYCIN/WATER FOR INJ (PEG) 1,000 MG/200 ML BAG IVPB SCH (10:09)
[2022-11-19] MEDS: COLLAGENASE CLOSTRIDIUM HIST. 30 GRAMS TUBE TP SCH (10:14)
[2022-11-19] MEDS: ACETAMINOPHEN 650 MG/20.3 ML ORAL SOLUTION (CUPS) PO PRN (20:03)
[2022-11-20] MEDS: CARBIDOPA/LEVODOPA 25/100 TABLET (FP) PO SCH ×2 (06:12→10:17)
[2022-11-20] MEDS: AMINO ACIDS/PROTEIN HYDROLYS 30 ML LIQUID.PKT PO SCH ×2 (08:21→12:40)
[2022-11-20 09:28] VITALS: BP 140/82; PULSE 75; TEMP 98
[2022-11-20] MEDS: LACTOBACILLUS ACIDOPHILUS 1 TABLET PO SCH (10:16)
[2022-11-20] MEDS: amLODIPine BESYLATE 5 MG TABLET (FP) PO SCH (10:16)
[2022-11-20] MEDS: VANCOMYCIN/WATER FOR INJ (PEG) 1,000 MG/200 ML BAG IVPB SCH (10:16)
[2022-11-20] MEDS: ZINC SULFATE 220 MG CAPSULE (FP) PO SCH (10:16)
[2022-11-20] MEDS: POLYETHYLENE GLYCOL (HEALTHYLAX) 3350 17 GM PACKET PO SCH (10:16)
[2022-11-20] MEDS: ASCORBIC ACID 500 MG TABLET (FP) PO SCH (10:17)
[2022-11-20] MEDS: COLLAGENASE CLOSTRIDIUM HIST. 30 GRAMS TUBE TP SCH (10:17)
== END 2022-11-20 13:41 | disposition home or self-care (01) | DRG 56 ==
LOC: FER 14:42 → FM/S 16:12 → J6S 11-08 17:22
PROVIDERS: ADMIT Internal Medicine; ATTEND Internal Medicine
DX: G20 Parkinson's disease (principal); A41.9 Sepsis, unspecified organism; L89.153 Pressure ulcer of sacral region, stage 3; E43 Unspecified severe protein-calorie malnutrition; N17.9 Acute kidney failure, unspecified; N39.0 Urinary tract infection, site not specified; Z68.1 Body mass index [BMI] 19.9 or less, adult; E87.0 Hyperosmolality and hypernatremia; R64 Cachexia; F03.90 Unspecified dementia, unspecified severity, without behavioral disturbance, psychotic disturbance, mood disturbance, and anxiety; F29 Unspecified psychosis not due to a substance or known physiological condition; Z93.1 Gastrostomy status; E78.5 Hyperlipidemia, unspecified; B96.20 Unspecified Escherichia coli [E. coli] as the cause of diseases classified elsewhere; R62.7 Adult failure to thrive; N40.0 Benign prostatic hyperplasia without lower urinary tract symptoms; E86.0 Dehydration; I10 Essential (primary) hypertension; D64.9 Anemia, unspecified
CPT/HCPCS: 36415; 71045-TC-FY; 76775-TC; 80048; 80053; 81003; 81015; 82436; 82550; 82553; 82570; 83605; 83735; 84100; 84133; 84156; 84300; 85025; 85027; 85045; 87040; 87070; 87076; 87086; 87186; 87205; 87635; 93005; 93306-TC; 97116-GP; 97162-GP; 99285-25; E0186; G0480; J0878; J1644

== ENCOUNTER 2023-01-21 23:43 | Inpatient (IN) | payer BC, OTHER ==
[2023-01-22] VITALS: BMI 14.9
[2023-01-22 01:54] LABS: URINE APPEARANCE TURBID; URINE BILIRUBIN NEGATIVE (NEGATIVE); URINE COLOR RED; URINE GLUCOSE (UA) NEGATIVE (NEGATIVE)
[2023-01-22 01:55] LABS: URINE PROTEIN 3+ (NEGATIVE); URINE UROBILINOGEN 0.2 mg/dL (0.2-1.0)
[2023-01-22] MEDS ORDERED: LIDOCAINE HCL 2% JELLY 11 ML TP ONE (01:57)
[2023-01-22 01:58] LABS: URINE RBC >100 /uL (0-23.9)
[2023-01-22 01:59] LABS: URINE CRYSTALS MODERATE /hpf
[2023-01-22] MEDS ORDERED: LIDOCAINE HCL 2% JELLY 10 ML CARTRIDGE UR ONE (03:08)
[2023-01-22 03:28] LABS: BASO % 1.4 % (0-2.0); EOS % 3.7 % (0-4.5); HEMATOCRIT 39.3 % (35.4-49); HEMOGLOBIN 12.9 GM/dL (11.7-16.9); LYMPH % 13.8 % (8-40); MCH 29.7 pg (25.7-33.7); MCHC 32.8 g/dl (32.0-35.9); MEAN CELL VOLUME 90.6 fl (80-96); MONO % 4.4 % (3.8-10.2); NEUT % 76.7 % (42.8-82.8); PLATELET COUNT 358 10^3/uL (134-434); RBC 4.33 M/mm3 (4.00-5.60); RDW 15.8 % (11.9-15.9); WHITE BLOOD COUNT 13.2 K/mm3 (4.0-10.0)
[2023-01-22 03:34] LABS: INR 0.97 (0.83-1.09); PROTHROMBIN TIME (PATIENT) 11.2 SEC (9.7-13.0)
[2023-01-22 03:36] LABS: ACTIVATED PTT 30.2 SECONDS (25.2-36.5)
[2023-01-22 03:47] LABS: POTASSIUM 5.3 mmol/L (3.5-5.1)
[2023-01-22 03:49] LABS: CALCIUM 9.8 mg/dL (8.5-10.1)
[2023-01-22 03:54] LABS: BILIRUBIN,TOTAL 0.8 mg/dL (0.2-1)
[2023-01-22 03:55] LABS: TOT PROT 8.2 g/dl (6.4-8.2)
[2023-01-22 06:11] LABS: POTASSIUM 3.8 mmol/L (3.5-5.1)
[2023-01-22 06:14] LABS: BLOOD UREA NITROGEN 24.4 mg/dL (7-18); CALCIUM 9.1 mg/dL (8.5-10.1)
[2023-01-22 06:18] LABS: CREATININE 0.7 mg/dL (0.55-1.3)
[2023-01-22] MEDS ORDERED: CARBIDOPA/LEVODOPA 25/100 TABLET (FP) ONE ×3 (09:56→14:25)
[2023-01-22] MEDS ORDERED: amLODIPine BESYLATE 5 MG TABLET (FP) ONE (09:56)
[2023-01-22] MEDS ORDERED: CEFTRIAXONE 1 GM/50 ML BAG ONE (09:56)
[2023-01-22] MEDS ORDERED: amLODIPine BESYLATE 5 MG TABLET (FP) PO SCH (10:00)
[2023-01-22] MEDS ORDERED: CEFTRIAXONE 1 GM in DEXTROSE 5%-WATER - 50 ML IVPB SCH (10:00)
[2023-01-22] MEDS: CARBIDOPA/LEVODOPA 25/100 TABLET (FP) PO SCH ×2 (10:10→14:36)
[2023-01-22] MEDS ORDERED: ACETAMINOPHEN 1000 MG/100 ML BAG IVPB SCH (12:30)
[2023-01-22 12:51] LABS: HEMATOCRIT 35.3 % (35.4-49); HEMOGLOBIN 11.3 GM/dL (11.7-16.9); MCHC 32.1 g/dl (32.0-35.9); MEAN CELL VOLUME 93.2 fl (80-96); MEAN PLT VOLUME 10.1 fl (7.5-11.1); PLATELET COUNT 283 10^3/uL (134-434); RBC 3.78 M/mm3 (4.00-5.60); RDW 15.3 % (11.9-15.9); WHITE BLOOD COUNT 16.3 K/mm3 (4.0-10.0)
[2023-01-22 13:06] LABS: POTASSIUM 4.1 mmol/L (3.5-5.1)
[2023-01-22 13:08] LABS: ALBUMIN 3.6 g/dl (3.4-5.0); BLOOD UREA NITROGEN 23.7 mg/dL (7-18); CALCIUM 9.4 mg/dL (8.5-10.1)
[2023-01-22 13:09] LABS: MAGNESIUM 2.2 mg/dL (1.8-2.4)
[2023-01-22 13:11] LABS: CREATININE 0.8 mg/dL (0.55-1.3); PHOSPHOROUS 3.5 mg/dL (2.5-4.9)
[2023-01-22 13:13] LABS: BILIRUBIN,TOTAL 0.5 mg/dL (0.2-1); TOT PROT 7.1 g/dl (6.4-8.2)
[2023-01-22 13:15] LABS: ANISOCYTOSIS 2+; MACROCYTOSIS 0
[2023-01-22] MEDS ORDERED: DOXYCYCLINE INJECTION 100 MG in DEXTROSE 5%-WATER 100 ML IVPB SCH (13:30)
[2023-01-22] MEDS ORDERED: DOXYCYCLINE HYCLATE 100 MG VIAL ONE (13:43)
[2023-01-22] MEDS ORDERED: PNEUMOC 20-VAL CONJ-DIP CRM/PF 0.5 ML SYRINGE IM ONE (17:00)
[2023-01-22] MEDS ORDERED: PROPOFOL 20 ML ONE (17:26)
[2023-01-22] MEDS ORDERED: ceFAZolin SODIUM 1 GM VIAL ONE (17:44)
[2023-01-22] MEDS ORDERED: ceFAZolin SODIUM 1 GM VIAL IVPB ONE (17:48)
[2023-01-22] MEDS ORDERED: ONDANSETRON 4 MG/2 ML VIAL ONE (18:07)
[2023-01-22] MEDS ORDERED: DEXAMETHASONE SOD PHOSPHATE 4 MG/1 ML VIAL ONE (18:07)
[2023-01-22] MEDS ORDERED: ACETAMINOPHEN INJECTION 100 ML IVPB ONE (19:16)
[2023-01-22] MEDS ORDERED: ACETAMINOPHEN 1000 MG/100 ML BAG IVPB ONE (19:23)
[2023-01-22] MEDS ORDERED: ONDANSETRON 4 MG/2 ML VIAL IVPUSH PRN (19:25)
[2023-01-22] MEDS: ACETAMINOPHEN 1000 MG/100 ML BAG IVPB SCH (19:25)
[2023-01-22] MEDS: LACTATED RINGERS SOLUTION 1,000 ML IV SCH (19:34)
[2023-01-22] MEDS: DOXYCYCLINE INJECTION 100 MG in DEXTROSE 5%-WATER 100 ML IVPB SCH (23:00)
[2023-01-23] MEDS: ACETAMINOPHEN 1000 MG/100 ML BAG IVPB SCH ×2 (01:30→06:59)
[2023-01-23] MEDS: COLLAGENASE CLOSTRIDIUM HIST. 30 GRAMS TUBE TP SCH ×2 (03:07→13:30)
[2023-01-23] MEDS: CARBIDOPA/LEVODOPA 25/100 TABLET (FP) PO SCH ×4 (07:00→17:15)
[2023-01-23 09:06] LABS: BASO % 0.7 % (0-2.0); EOS % 0.6 % (0-4.5); HEMATOCRIT 28.3 % (35.4-49); HEMOGLOBIN 9.5 GM/dL (11.7-16.9); LYMPH % 9.6 % (8-40); MCH 30.2 pg (25.7-33.7); MCHC 33.4 g/dl (32.0-35.9); MEAN CELL VOLUME 90.5 fl (80-96); MEAN PLT VOLUME 9.5 fl (7.5-11.1); MONO % 7.2 % (3.8-10.2); NEUT % 81.9 % (42.8-82.8); PLATELET COUNT 260 10^3/uL (134-434); RBC 3.13 M/mm3 (4.00-5.60); RDW 15.3 % (11.9-15.9)
[2023-01-23 09:18] LABS: INR 1.16 (0.83-1.09); PROTHROMBIN TIME (PATIENT) 13.4 SEC (9.7-13.0)
[2023-01-23 09:31] LABS: POTASSIUM 4.1 mmol/L (3.5-5.1)
[2023-01-23 09:35] LABS: CALCIUM 9.1 mg/dL (8.5-10.1)
[2023-01-23 09:36] LABS: BLOOD UREA NITROGEN 23.4 mg/dL (7-18)
[2023-01-23 09:39] LABS: CREATININE 0.8 mg/dL (0.55-1.3); PHOSPHOROUS 3.6 mg/dL (2.5-4.9)
[2023-01-23] MEDS: LACTOBACILLUS ACIDOPHILUS 1 TABLET PO SCH (09:48)
[2023-01-23] MEDS: CEFTRIAXONE 1 GM in DEXTROSE 5%-WATER - 50 ML IVPB SCH (09:49)
[2023-01-23] MEDS: amLODIPine BESYLATE 5 MG TABLET (FP) PO SCH (09:49)
[2023-01-23] MEDS ORDERED: LACTOBACILLUS ACIDOPHILUS 1 TABLET PO SCH (10:00)
[2023-01-23] MEDS: DOXYCYCLINE INJECTION 100 MG in DEXTROSE 5%-WATER 100 ML IVPB SCH ×2 (10:26→22:03)
[2023-01-23] MEDS: LACTATED RINGERS SOLUTION 1,000 ML IV SCH ×2 (17:18→22:02)
[2023-01-24] MEDS: CARBIDOPA/LEVODOPA 25/100 TABLET (FP) PO SCH ×4 (05:43→17:24)
[2023-01-24 09:18] LABS: HEMATOCRIT 30.6 % (35.4-49); HEMOGLOBIN 10.4 GM/dL (11.7-16.9); MCH 30.5 pg (25.7-33.7); MCHC 33.9 g/dl (32.0-35.9); MEAN CELL VOLUME 89.9 fl (80-96); MEAN PLT VOLUME 9.7 fl (7.5-11.1); PLATELET COUNT 298 10^3/uL (134-434); RBC 3.41 M/mm3 (4.00-5.60); RDW 15.3 % (11.9-15.9); WHITE BLOOD COUNT 8.7 K/mm3 (4.0-10.0)
[2023-01-24 09:44] LABS: POTASSIUM 3.6 mmol/L (3.5-5.1)
[2023-01-24 09:48] LABS: CALCIUM 8.9 mg/dL (8.5-10.1)
[2023-01-24 09:49] LABS: BLOOD UREA NITROGEN 17.6 mg/dL (7-18); MAGNESIUM 1.9 mg/dL (1.8-2.4)
[2023-01-24] MEDS: amLODIPine BESYLATE 5 MG TABLET (FP) PO SCH (09:49)
[2023-01-24] MEDS: CEFTRIAXONE 1 GM in DEXTROSE 5%-WATER - 50 ML IVPB SCH (09:49)
[2023-01-24] MEDS: LACTOBACILLUS ACIDOPHILUS 1 TABLET PO SCH (09:49)
[2023-01-24 09:53] LABS: CREATININE 0.6 mg/dL (0.55-1.3); PHOSPHOROUS 2.8 mg/dL (2.5-4.9)
[2023-01-24] MEDS: DOXYCYCLINE INJECTION 100 MG in DEXTROSE 5%-WATER 100 ML IVPB SCH ×3 (10:31→21:20)
[2023-01-24] MEDS: COLLAGENASE CLOSTRIDIUM HIST. 30 GRAMS TUBE TP SCH (10:32)
[2023-01-24] MEDS ORDERED: POTASSIUM PHOSPHATE 15 MM in DEXTROSE 5%-WATER - 250 ML IVPB ONE (15:00)
[2023-01-24 15:03] VITALS: BP 134/78; PULSE 74; RESP 20; TEMP 97.9
[2023-01-24] MEDS: LACTATED RINGERS SOLUTION 1,000 ML IV SCH (20:03)
== END 2023-01-24 21:35 | disposition home or self-care (01) | DRG 698 ==
LOC: JER 23:43 → JERBED 01-22 03:55 → J7W 01-22 15:13
PROVIDERS: ADMIT Internal Medicine; ATTEND Internal Medicine
PROC: 0T2BX0Z Change Drainage Device in Bladder, External Approach (ICD-10-PCS; 2023-01-22)
PROC: 0TCB8ZZ Extirpation of Matter from Bladder, Via Natural or Artificial Opening Endoscopic (ICD-10-PCS; 2023-01-22)
PROC: 0T7D8ZZ Dilation of Urethra, Via Natural or Artificial Opening Endoscopic (ICD-10-PCS; principal; 2023-01-22 15:30)
DX: T83.83XA Hemorrhage due to genitourinary prosthetic devices, implants and grafts, initial encounter (principal); E43 Unspecified severe protein-calorie malnutrition; Z68.1 Body mass index [BMI] 19.9 or less, adult; R31.9 Hematuria, unspecified; G20 Parkinson's disease; N40.0 Benign prostatic hyperplasia without lower urinary tract symptoms; I10 Essential (primary) hypertension; R62.7 Adult failure to thrive; L89.152 Pressure ulcer of sacral region, stage 2; F03.90 Unspecified dementia, unspecified severity, without behavioral disturbance, psychotic disturbance, mood disturbance, and anxiety; E86.0 Dehydration; E78.5 Hyperlipidemia, unspecified; Y83.8 Other surgical procedures as the cause of abnormal reaction of the patient, or of later complication, without mention of misadventure at the time of the procedure
CPT/HCPCS: 36415; 71045-TC-FY; 76775-TC; 80048; 80053; 81003; 83735; 84100; 85025; 85027; 85610; 85730; 86900; 87086; 93005; 93010; 94760; 99285-25

== ENCOUNTER 2023-02-14 16:19 | Inpatient (IN) | payer BC, OTHER ==
[2023-02-14 20:39] LABS: BASO % 0.9 % (0-2.0); EOS % 1.3 % (0-4.5); LYMPH % 12.3 % (8-40); MCH 30.5 pg (25.7-33.7); MCHC 33.3 g/dl (32.0-35.9); MEAN CELL VOLUME 91.6 fl (80-96); MEAN PLT VOLUME 9.3 fl (7.5-11.1); NEUT % 79.5 % (42.8-82.8); PLATELET COUNT 311 10^3/uL (134-434); RBC 3.93 M/mm3 (4.00-5.60); RDW 16.6 % (11.9-15.9); WHITE BLOOD COUNT 7.9 K/mm3 (4.0-10.0)
[2023-02-14 21:01] LABS: POTASSIUM 5.5 mmol/L (3.5-5.1)
[2023-02-14 21:04] LABS: ALBUMIN 2.7 g/dl (3.4-5.0); BLOOD UREA NITROGEN 25.2 mg/dL (7-18)
[2023-02-14 21:07] LABS: CREATININE 0.6 mg/dL (0.55-1.3)
[2023-02-14 21:09] LABS: BILIRUBIN,TOTAL 0.5 mg/dL (0.2-1); TOT PROT 5.7 g/dl (6.4-8.2)
[2023-02-14] MEDS ORDERED: SODIUM CHLORIDE 0.9% 500 ML INFUS.BAG IV ONE (21:10)
[2023-02-14 23:22] LABS: EPI CELLS 18 /uL (0-25.1); HYALINE CASTS 38 /uL (0-3.1); PH,URINE 6.5 (5.0-8.0); URINE APPEARANCE TURBID; URINE BACTERIA >9,000 /uL (0-1359); URINE BILIRUBIN NEGATIVE (NEGATIVE); URINE COLOR DK YELLOW; URINE GLUCOSE (UA) NEGATIVE (NEGATIVE); URINE KETONE TRACE (NEGATIVE); URINE LEUK ESTERASE 3+ (NEGATIVE); URINE NITRITE POSITIVE (NEGATIVE); URINE PROTEIN 2+ (NEGATIVE); URINE RBC 3206 /uL (0-23.9); URINE WBC 31505 /uL (0-25.8)
[2023-02-14 23:41] LABS: POTASSIUM 4.7 mmol/L (3.5-5.1)
[2023-02-14 23:43] LABS: CALCIUM 8.8 mg/dL (8.5-10.1)
[2023-02-14 23:44] LABS: BLOOD UREA NITROGEN 24.1 mg/dL (7-18)
[2023-02-14 23:47] LABS: CREATININE 0.6 mg/dL (0.55-1.3)
[2023-02-14 23:49] LABS: BILIRUBIN,TOTAL 0.6 mg/dL (0.2-1); TOT PROT 7.3 g/dl (6.4-8.2)
[2023-02-14 23:50] LABS: ALBUMIN 3.3 g/dl (3.4-5.0)
[2023-02-15] MEDS ORDERED: PIPERACILLIN/TAZOB 4.5 GM 4.5 GM in DEXTROSE 5%-WATER 100 ML IVPB ONE (00:37)
[2023-02-15] MEDS ORDERED: PIPERACILLIN/TAZOB 4.5 GM 4.5 GM/100 ML BAG IVPB ONE (02:22)
[2023-02-15] MEDS ORDERED: PIPERACILLIN/TAZOB 2.25 GM 2.25 GM in DEXTROSE 5%-WATER - 50 ML IVPB SCH (03:00)
[2023-02-15] MEDS ORDERED: VANCOMYCIN 1,000 MG in DEXTROSE 5%-WATER - 250 ML IVPB SCH (03:15)
[2023-02-15 03:35] LABS: POTASSIUM 4.3 mmol/L (3.5-5.1)
[2023-02-15 03:37] LABS: CALCIUM 8.7 mg/dL (8.5-10.1)
[2023-02-15 03:38] LABS: ALBUMIN 3.2 g/dl (3.4-5.0); BLOOD UREA NITROGEN 23.6 mg/dL (7-18)
[2023-02-15 03:41] LABS: BILIRUBIN,DIRECT 0.2 mg/dL (0.0-0.2); CREATININE 0.6 mg/dL (0.55-1.3)
[2023-02-15 03:42] LABS: BILIRUBIN,TOTAL 0.5 mg/dL (0.2-1)
[2023-02-15 03:43] LABS: TOT PROT 6.5 g/dl (6.4-8.2)
[2023-02-15] MEDS ORDERED: VANCOMYCIN 1 GRAM (PRE-DOCKED) 1,000 MG/250 ML BAG IVPB SCH (04:00)
[2023-02-15] MEDS: VANCOMYCIN 1 GRAM (PRE-DOCKED) 1,000 MG/250 ML BAG IVPB SCH ×2 (05:43→11:45)
[2023-02-15] MEDS ORDERED: CARBIDOPA/LEVODOPA 25/100 TABLET (FP) ONE (06:11)
[2023-02-15] MEDS: CARBIDOPA/LEVODOPA 25/100 TABLET (FP) PO SCH ×4 (06:43→17:31)
[2023-02-15 07:01] LABS: BASO % 1.3 % (0-2.0); EOS % 2.5 % (0-4.5); HEMATOCRIT 32.2 % (35.4-49); HEMOGLOBIN 10.5 GM/dL (11.7-16.9); LYMPH % 12.5 % (8-40); MCH 30.5 pg (25.7-33.7); MCHC 32.5 g/dl (32.0-35.9); MEAN CELL VOLUME 93.8 fl (80-96); MEAN PLT VOLUME 9.5 fl (7.5-11.1); MONO % 5.2 % (3.8-10.2); NEUT % 78.5 % (42.8-82.8); PLATELET COUNT 331 10^3/uL (134-434); RBC 3.44 M/mm3 (4.00-5.60); RDW 16.2 % (11.9-15.9)
[2023-02-15 07:12] LABS: CALCIUM 8.7 mg/dL (8.5-10.1)
[2023-02-15 07:13] LABS: BLOOD UREA NITROGEN 22.3 mg/dL (7-18); MAGNESIUM 2.1 mg/dL (1.8-2.4)
[2023-02-15 07:16] LABS: CREATININE 0.6 mg/dL (0.55-1.3); PHOSPHOROUS 2.9 mg/dL (2.5-4.9)
[2023-02-15 07:17] LABS: BILIRUBIN,TOTAL 1.5 mg/dL (0.2-1); TOT PROT 6.2 g/dl (6.4-8.2)
[2023-02-15] MEDS ORDERED: PIPERACILLIN/TAZOB 3.375 GM 3.375 GM in DEXTROSE 5%-WATER - 50 ML IVPB SCH ×2 (09:00→10:00)
[2023-02-15] MEDS ORDERED: PIPERACILLIN/TAZOB 3.375 GM 3.375 GM/50 ML BAG IVPB ONE (10:22)
[2023-02-15] MEDS: amLODIPine BESYLATE 5 MG TABLET (FP) PO SCH (10:40)
[2023-02-15] MEDS: ENOXAPARIN NA (PORCINE) 40 MG/0.4 ML DISP.SYRIN SQ SCH (10:40)
[2023-02-15] MEDS ORDERED: VANCOMYCIN 1 GRAM (PRE-DOCKED) 1,000 MG/250 ML BAG IVPB ONE (13:00)
[2023-02-15 13:36] VITALS: BMI 14.1
[2023-02-15] MEDS ORDERED: VANCOMYCIN/WATER FOR INJ (PEG) 1,000 MG/200 ML BAG IVPB ONE (17:00)
[2023-02-15] MEDS: PIPERACILLIN/TAZOB 3.375 GM 3.375 GM in DEXTROSE 5%-WATER - 50 ML IVPB SCH (17:30)
[2023-02-15] MEDS: SENNOSIDES 8.6MG TABLET (FP) PO SCH (22:33)
[2023-02-16] MEDS: PIPERACILLIN/TAZOB 3.375 GM 3.375 GM in DEXTROSE 5%-WATER - 50 ML IVPB SCH ×3 (01:25→17:16)
[2023-02-16] MEDS ORDERED: VANCOMYCIN 1 GRAM (PRE-DOCKED) 1,000 MG/250 ML BAG IVPB SCH (06:00)
[2023-02-16] MEDS: CARBIDOPA/LEVODOPA 25/100 TABLET (FP) PO SCH ×4 (06:15→17:30)
[2023-02-16] MEDS: amLODIPine BESYLATE 5 MG TABLET (FP) PO SCH (09:41)
[2023-02-16] MEDS: ENOXAPARIN NA (PORCINE) 40 MG/0.4 ML DISP.SYRIN SQ SCH (09:41)
[2023-02-16 10:25] LABS: ALBUMIN 3.1 g/dl (3.4-5.0)
[2023-02-16 10:27] LABS: BILIRUBIN,DIRECT 0.2 mg/dL (0.0-0.2)
[2023-02-16 10:29] LABS: BILIRUBIN,TOTAL 0.6 mg/dL (0.2-1); TOT PROT 6.4 g/dl (6.4-8.2)
[2023-02-16] MEDS: DEXTROSE 5%-0.45% SALINE 1,000 ML IV SCH ×2 (13:28→15:19)
[2023-02-16] MEDS: SENNOSIDES 8.6MG TABLET (FP) PO SCH (21:31)
[2023-02-17] MEDS ORDERED: PIPERACILLIN/TAZOBACTAM 3.375 GM VIAL IVPB ONE (01:10)
[2023-02-17] MEDS: PIPERACILLIN/TAZOB 3.375 GM 3.375 GM in DEXTROSE 5%-WATER - 50 ML IVPB SCH ×3 (01:23→17:34)
[2023-02-17] MEDS: CARBIDOPA/LEVODOPA 25/100 TABLET (FP) PO SCH ×4 (05:41→17:33)
[2023-02-17 10:08] LABS: POTASSIUM 3.6 mmol/L (3.5-5.1)
[2023-02-17 10:14] LABS: CALCIUM 8.9 mg/dL (8.5-10.1)
[2023-02-17 10:15] LABS: BLOOD UREA NITROGEN 16.2 mg/dL (7-18)
[2023-02-17 10:18] LABS: CREATININE 0.6 mg/dL (0.55-1.3)
[2023-02-17] MEDS: ENOXAPARIN NA (PORCINE) 40 MG/0.4 ML DISP.SYRIN SQ SCH (10:30)
[2023-02-17] MEDS: DEXTROSE 5%-0.45% SALINE 1,000 ML IV SCH (10:30)
[2023-02-17] MEDS: amLODIPine BESYLATE 5 MG TABLET (FP) PO SCH (10:30)
[2023-02-17] MEDS ORDERED: AMINO ACIDS/PROTEIN HYDROLYS 30 ML LIQUID.PKT PO SCH (17:30)
[2023-02-17] MEDS: AMINO ACIDS/PROTEIN HYDROLYS 30 ML LIQUID.PKT PO SCH (17:47)
[2023-02-17] MEDS: SENNOSIDES 8.6MG TABLET (FP) PO SCH (21:50)
[2023-02-18] MEDS: CARBIDOPA/LEVODOPA 25/100 TABLET (FP) PO SCH ×4 (05:51→17:30)
[2023-02-18] MEDS: DEXTROSE 5%-0.45% SALINE 1,000 ML IV SCH ×2 (06:27→12:04)
[2023-02-18] MEDS: AMINO ACIDS/PROTEIN HYDROLYS 30 ML LIQUID.PKT PO SCH ×2 (08:44→17:30)
[2023-02-18] MEDS: ENOXAPARIN NA (PORCINE) 40 MG/0.4 ML DISP.SYRIN SQ SCH (09:20)
[2023-02-18] MEDS: amLODIPine BESYLATE 5 MG TABLET (FP) PO SCH (09:21)
[2023-02-18] MEDS: CEFTRIAXONE 1 GM in DEXTROSE 5%-WATER - 50 ML IVPB SCH (09:23)
[2023-02-18 11:00] LABS: BASO % 2.3 % (0-2.0); EOS % 5.1 % (0-4.5); HEMATOCRIT 31.5 % (35.4-49); HEMOGLOBIN 10.8 GM/dL (11.7-16.9); LYMPH % 33.3 % (8-40); MCH 31.1 pg (25.7-33.7); MCHC 34.4 g/dl (32.0-35.9); MEAN CELL VOLUME 90.3 fl (80-96); MEAN PLT VOLUME 8.7 fl (7.5-11.1); MONO % 5.6 % (3.8-10.2); NEUT % 53.7 % (42.8-82.8); PLATELET COUNT 415 10^3/uL (134-434); RBC 3.49 M/mm3 (4.00-5.60); RDW 15.8 % (11.9-15.9); WHITE BLOOD COUNT 4.4 K/mm3 (4.0-10.0)
[2023-02-18 11:24] LABS: POTASSIUM 3.6 mmol/L (3.5-5.1)
[2023-02-18 11:32] LABS: BLOOD UREA NITROGEN 13.1 mg/dL (7-18); CALCIUM 8.9 mg/dL (8.5-10.1); MAGNESIUM 2.1 mg/dL (1.8-2.4)
[2023-02-18 11:33] LABS: BILIRUBIN,TOTAL 0.4 mg/dL (0.2-1); PHOSPHOROUS 2.8 mg/dL (2.5-4.9); TOT PROT 6.4 g/dl (6.4-8.2)
[2023-02-18 11:35] LABS: CREATININE 0.6 mg/dL (0.55-1.3)
[2023-02-18] MEDS: ACETAMINOPHEN 650 MG/20.3 ML ORAL SOLUTION (CUPS) PO SCH ×2 (12:03→17:29)
[2023-02-18] MEDS ORDERED: POLYETHYLENE GLYCOL (HEALTHYLAX) 3350 17 GM PACKET PO PRN (14:35)
[2023-02-18] MEDS ORDERED: BISACODYL 10 MG SUPP.RECT PR ONE (17:39)
[2023-02-18] MEDS: SENNOSIDES 8.6MG TABLET (FP) PO SCH (22:15)
[2023-02-19] MEDS: ACETAMINOPHEN 650 MG/20.3 ML ORAL SOLUTION (CUPS) PO SCH ×4 (00:09→17:18)
[2023-02-19] MEDS: DEXTROSE 5%-0.45% SALINE 1,000 ML IV SCH ×3 (04:30→11:34)
[2023-02-19] MEDS: CARBIDOPA/LEVODOPA 25/100 TABLET (FP) PO SCH ×4 (05:38→17:19)
[2023-02-19] MEDS: AMINO ACIDS/PROTEIN HYDROLYS 30 ML LIQUID.PKT PO SCH ×2 (11:20→16:44)
[2023-02-19] MEDS: amLODIPine BESYLATE 5 MG TABLET (FP) PO SCH (11:21)
[2023-02-19] MEDS: ENOXAPARIN NA (PORCINE) 40 MG/0.4 ML DISP.SYRIN SQ SCH (11:23)
[2023-02-19] MEDS: CEFTRIAXONE 1 GM in DEXTROSE 5%-WATER - 50 ML IVPB SCH (11:33)
[2023-02-19 12:43] LABS: HEMATOCRIT 34.3 % (35.4-49); HEMOGLOBIN 11.4 GM/dL (11.7-16.9); MCH 30.5 pg (25.7-33.7); MCHC 33.1 g/dl (32.0-35.9); MEAN CELL VOLUME 91.9 fl (80-96); MEAN PLT VOLUME 8.8 fl (7.5-11.1); PLATELET COUNT 431 10^3/uL (134-434); RBC 3.73 M/mm3 (4.00-5.60); RDW 15.7 % (11.9-15.9); WHITE BLOOD COUNT 8.9 K/mm3 (4.0-10.0)
[2023-02-19 13:14] LABS: POTASSIUM 3.8 mmol/L (3.5-5.1)
[2023-02-19 13:23] LABS: BLOOD UREA NITROGEN 15.5 mg/dL (7-18); CALCIUM 8.7 mg/dL (8.5-10.1); MAGNESIUM 2.3 mg/dL (1.8-2.4)
[2023-02-19 13:26] LABS: CREATININE 0.5 mg/dL (0.55-1.3); PHOSPHOROUS 2.5 mg/dL (2.5-4.9)
[2023-02-19 13:27] LABS: BILIRUBIN,TOTAL 0.3 mg/dL (0.2-1); TOT PROT 6.2 g/dl (6.4-8.2)
[2023-02-19] MEDS: SENNOSIDES 8.6MG TABLET (FP) PO SCH (21:15)
[2023-02-20] MEDS: DEXTROSE 5%-0.45% SALINE 1,000 ML IV SCH ×2 (01:05→14:03)
[2023-02-20] MEDS: ACETAMINOPHEN 650 MG/20.3 ML ORAL SOLUTION (CUPS) PO SCH ×4 (01:09→18:04)
[2023-02-20] MEDS: CARBIDOPA/LEVODOPA 25/100 TABLET (FP) PO SCH ×4 (06:56→17:23)
[2023-02-20] MEDS: AMINO ACIDS/PROTEIN HYDROLYS 30 ML LIQUID.PKT PO SCH ×2 (08:26→17:23)
[2023-02-20] MEDS: CEFTRIAXONE 1 GM in DEXTROSE 5%-WATER - 50 ML IVPB SCH (09:15)
[2023-02-20] MEDS: amLODIPine BESYLATE 5 MG TABLET (FP) PO SCH (09:21)
[2023-02-20] MEDS: ENOXAPARIN NA (PORCINE) 40 MG/0.4 ML DISP.SYRIN SQ SCH (09:26)
[2023-02-20 10:33] LABS: HEMATOCRIT 27.8 % (35.4-49); HEMOGLOBIN 9.2 GM/dL (11.7-16.9); MCHC 33.3 g/dl (32.0-35.9); MEAN CELL VOLUME 93.2 fl (80-96); MEAN PLT VOLUME 8.4 fl (7.5-11.1); PLATELET COUNT 360 10^3/uL (134-434); RBC 2.98 M/mm3 (4.00-5.60); RDW 15.8 % (11.9-15.9)
[2023-02-20 11:32] LABS: ALBUMIN 2.6 g/dl (3.4-5.0)
[2023-02-20 11:33] LABS: BLOOD UREA NITROGEN 14.4 mg/dL (7-18); CALCIUM 8.5 mg/dL (8.5-10.1); CREATININE 0.4 mg/dL (0.55-1.3); PHOSPHOROUS 2.4 mg/dL (2.5-4.9)
[2023-02-20 11:35] LABS: BILIRUBIN,TOTAL 0.4 mg/dL (0.2-1); TOT PROT 5.4 g/dl (6.4-8.2)
[2023-02-20 11:37] LABS: MAGNESIUM 2.2 mg/dL (1.8-2.4)
[2023-02-20 11:55] LABS: POTASSIUM 3.8 mmol/L (3.5-5.1)
[2023-02-20 19:10] VITALS: BP 134/72; PULSE 65; RESP 16; TEMP 98.1
== END 2023-02-20 23:00 | disposition home or self-care (01) | DRG 698 ==
LOC: JER 16:19 → INTOOBSV 02-15 00:34 → JERBED 02-15 00:34 → UNDOADMOB 02-15 00:34 → JERBED 02-15 01:41 → OBSVTOIN 02-15 01:41 → J6S 02-15 13:28
PROVIDERS: ADMIT Internal Medicine; ATTEND Internal Medicine
PROC: 0T2BX0Z Change Drainage Device in Bladder, External Approach (ICD-10-PCS; principal; 2023-02-14)
DX: T83.011A Breakdown (mechanical) of indwelling urethral catheter, initial encounter (principal); L89.153 Pressure ulcer of sacral region, stage 3; R53.2 Functional quadriplegia; E46 Unspecified protein-calorie malnutrition; N17.9 Acute kidney failure, unspecified; N39.0 Urinary tract infection, site not specified; R64 Cachexia; Z68.1 Body mass index [BMI] 19.9 or less, adult; Y83.8 Other surgical procedures as the cause of abnormal reaction of the patient, or of later complication, without mention of misadventure at the time of the procedure; I10 Essential (primary) hypertension; G20 Parkinson's disease; N40.1 Benign prostatic hyperplasia with lower urinary tract symptoms; E87.5 Hyperkalemia; B96.29 Other Escherichia coli [E. coli] as the cause of diseases classified elsewhere; F44.4 Conversion disorder with motor symptom or deficit; K59.00 Constipation, unspecified; R13.10 Dysphagia, unspecified; R94.5 Abnormal results of liver function studies; Z74.01 Bed confinement status; L89.621 Pressure ulcer of left heel, stage 1; L89.611 Pressure ulcer of right heel, stage 1; L89.211 Pressure ulcer of right hip, stage 1
CPT/HCPCS: 36415; 76705-TC; 76775-TC; 76856-TC; 80048; 80053; 80076; 80307; 81003; 82962; 83735; 84100; 85025; 85027; 86704; 86705; 86708; 87086; 87186; 87340; 87517; 87902; 93005; 93010; 99285-25

== ENCOUNTER 2023-05-01 10:03 | Inpatient (IN) | payer BC, OTHER ==
[2023-05-01] MEDS ORDERED: CEFTRIAXONE 1 GM/50 ML BAG ONE (12:01)
[2023-05-01 12:33] LABS: EOS % 0.2 % (0-4.5); HEMATOCRIT 32.4 % (35.4-49); HEMOGLOBIN 11.1 GM/dL (11.7-16.9); LYMPH % 24.1 % (8-40); MCH 33.4 pg (25.7-33.7); MCHC 34.2 g/dl (32.0-35.9); MEAN CELL VOLUME 97.8 fl (80-96); MEAN PLT VOLUME 8.2 fl (7.5-11.1); NEUT % 66.7 % (42.8-82.8); PLATELET COUNT 352 10^3/uL (134-434); RBC 3.31 M/mm3 (4.00-5.60); RDW 15.6 % (11.9-15.9); WHITE BLOOD COUNT 6.1 K/mm3 (4.0-10.0)
[2023-05-01 12:48] LABS: POTASSIUM 3.7 mmol/L (3.5-5.1)
[2023-05-01 12:50] LABS: CALCIUM 9.1 mg/dL (8.5-10.1)
[2023-05-01 12:51] LABS: ALBUMIN 2.8 g/dl (3.4-5.0); BLOOD UREA NITROGEN 21.8 mg/dL (7-18)
[2023-05-01 12:54] LABS: CREATININE 0.4 mg/dL (0.55-1.3)
[2023-05-01 12:55] LABS: BILIRUBIN,TOTAL 0.4 mg/dL (0.2-1)
[2023-05-01 13:20] LABS: EPI CELLS 3 /uL (0-25.1); HYALINE CASTS 5 /uL (0-3.1); PH,URINE 7.5 (5.0-8.0); URINE APPEARANCE CLOUDY; URINE BACTERIA >9,000 /uL (0-1359); URINE BILIRUBIN NEGATIVE (NEGATIVE); URINE COLOR YELLOW; URINE GLUCOSE (UA) NEGATIVE (NEGATIVE); URINE KETONE NEGATIVE (NEGATIVE); URINE LEUK ESTERASE 3+ (NEGATIVE); URINE NITRITE POSITIVE (NEGATIVE); URINE PROTEIN NEGATIVE (NEGATIVE); URINE RBC 25 /uL (0-23.9); URINE WBC 691 /uL (0-25.8)
[2023-05-01] MEDS ORDERED: POLYETHYLENE GLYCOL (HEALTHYLAX) 3350 17 GM PACKET PO PRN (16:25)
[2023-05-01] MEDS: CARBIDOPA/LEVODOPA 25/100 TABLET (FP) PO SCH (17:23)
[2023-05-02 00:48] VITALS: BMI 12.9
[2023-05-02] MEDS: CARBIDOPA/LEVODOPA 25/100 TABLET (FP) PO SCH ×4 (06:15→17:32)
[2023-05-02 09:31] LABS: BASO % 0.6 % (0-2.0); EOS % 0.2 % (0-4.5); HEMATOCRIT 29.6 % (35.4-49); HEMOGLOBIN 10.3 GM/dL (11.7-16.9); LYMPH % 18.1 % (8-40); MCH 33.3 pg (25.7-33.7); MCHC 34.7 g/dl (32.0-35.9); MEAN CELL VOLUME 95.8 fl (80-96); MEAN PLT VOLUME 8.6 fl (7.5-11.1); MONO % 5.4 % (3.8-10.2); NEUT % 75.7 % (42.8-82.8); PLATELET COUNT 325 10^3/uL (134-434); RBC 3.09 M/mm3 (4.00-5.60); RDW 15.6 % (11.9-15.9); WHITE BLOOD COUNT 6.8 K/mm3 (4.0-10.0)
[2023-05-02] MEDS: ENOXAPARIN NA (PORCINE) 30 MG/0.3 ML DISP.SYRIN SQ SCH (09:45)
[2023-05-02] MEDS: amLODIPine BESYLATE 5 MG TABLET (FP) PO SCH (09:46)
[2023-05-02] MEDS ORDERED: MEROPENEM 1 GM in DEXTROSE 5%-WATER 100 ML IVPB SCH ×2 (10:00→18:00)
[2023-05-02 11:45] LABS: POTASSIUM 3.9 mmol/L (3.5-5.1)
[2023-05-02 11:54] LABS: BILIRUBIN,TOTAL 0.4 mg/dL (0.2-1); TOT PROT 6.1 g/dl (6.4-8.2)
[2023-05-02 11:56] LABS: CREATININE 0.5 mg/dL (0.55-1.3); MAGNESIUM 2.3 mg/dL (1.8-2.4)
[2023-05-02 11:59] LABS: CALCIUM 9.7 mg/dL (8.5-10.1)
[2023-05-02 12:00] LABS: ALBUMIN 3.1 g/dl (3.4-5.0)
[2023-05-02] MEDS: AMINO ACIDS/PROTEIN HYDROLYS 30 ML LIQUID.PKT PO SCH (16:58)
[2023-05-02] MEDS: MEROPENEM 1 GM in DEXTROSE 5%-WATER 100 ML IVPB SCH (17:31)
[2023-05-03] MEDS: MEROPENEM 1 GM in DEXTROSE 5%-WATER 100 ML IVPB SCH ×2 (01:20→10:22)
[2023-05-03] MEDS: CARBIDOPA/LEVODOPA 25/100 TABLET (FP) PO SCH ×4 (06:50→18:40)
[2023-05-03 09:04] LABS: BASO % 1.1 % (0-2.0); EOS % 0.1 % (0-4.5); HEMATOCRIT 28.8 % (35.4-49); HEMOGLOBIN 9.9 GM/dL (11.7-16.9); MCH 33.5 pg (25.7-33.7); MCHC 34.5 g/dl (32.0-35.9); MEAN CELL VOLUME 97.2 fl (80-96); MEAN PLT VOLUME 8.3 fl (7.5-11.1); NEUT % 70.8 % (42.8-82.8); PLATELET COUNT 306 10^3/uL (134-434); RBC 2.96 M/mm3 (4.00-5.60); RDW 15.7 % (11.9-15.9); WHITE BLOOD COUNT 6.5 K/mm3 (4.0-10.0)
[2023-05-03 09:13] LABS: POTASSIUM 4.1 mmol/L (3.5-5.1); SODIUM 138 mmol/L (136-145)
[2023-05-03 09:15] LABS: BLOOD UREA NITROGEN 26.8 mg/dL (7-18); CALCIUM 8.8 mg/dL (8.5-10.1); CO2 31 mmol/L (21-32); GLUCOSE,RANDOM 71 mg/dL (74-106); MAGNESIUM 2.1 mg/dL (1.8-2.4)
[2023-05-03 09:16] LABS: ALBUMIN 2.7 g/dl (3.4-5.0)
[2023-05-03 09:18] LABS: PHOSPHOROUS 2.6 mg/dL (2.5-4.9); SGPT/ALT 225 U/L (13-61)
[2023-05-03 09:19] LABS: CREATININE 0.4 mg/dL (0.55-1.3); SGOT/AST 145 U/L (15-37)
[2023-05-03 09:20] LABS: BILIRUBIN,TOTAL 0.3 mg/dL (0.2-1); TOT PROT 5.6 g/dl (6.4-8.2)
[2023-05-03 09:21] LABS: ALK PHOS 169 U/L (45-117)
[2023-05-03 09:23] LABS: ANION GAP 2 mmol/L (4-13); CHLORIDE 105 mmol/L (98-107)
[2023-05-03] MEDS: ENOXAPARIN NA (PORCINE) 30 MG/0.3 ML DISP.SYRIN SQ SCH (10:23)
[2023-05-03] MEDS: amLODIPine BESYLATE 5 MG TABLET (FP) PO SCH (10:24)
[2023-05-03] MEDS: AMINO ACIDS/PROTEIN HYDROLYS 30 ML LIQUID.PKT PO SCH ×2 (10:24→18:40)
[2023-05-03] MEDS ORDERED: ACETAMINOPHEN 1000 MG/100 ML BAG IVPB PRN ×2 (11:46→13:44)
[2023-05-03] MEDS ORDERED: CEFTRIAXONE 1 GM in DEXTROSE 5%-WATER - 50 ML IVPB SCH (18:00)
[2023-05-04] MEDS: CARBIDOPA/LEVODOPA 25/100 TABLET (FP) PO SCH ×4 (05:41→17:18)
[2023-05-04] MEDS: AMINO ACIDS/PROTEIN HYDROLYS 30 ML LIQUID.PKT PO SCH ×2 (08:01→17:18)
[2023-05-04 09:12] LABS: CALCIUM 8.9 mg/dL (8.5-10.1)
[2023-05-04 09:13] LABS: ALBUMIN 2.6 g/dl (3.4-5.0); BLOOD UREA NITROGEN 29.3 mg/dL (7-18)
[2023-05-04 09:16] LABS: CREATININE 0.4 mg/dL (0.55-1.3)
[2023-05-04 09:18] LABS: BILIRUBIN,TOTAL 0.2 mg/dL (0.2-1); TOT PROT 5.3 g/dl (6.4-8.2)
[2023-05-04] MEDS: amLODIPine BESYLATE 5 MG TABLET (FP) PO SCH (09:29)
[2023-05-04] MEDS: ENOXAPARIN NA (PORCINE) 30 MG/0.3 ML DISP.SYRIN SQ SCH (09:32)
[2023-05-04] MEDS: SULFAMETHOXAZOLE/TRIMETHOPRIM 800MG/160MG D.S. TABLET PO SCH ×2 (09:32→21:04)
[2023-05-05] MEDS: CARBIDOPA/LEVODOPA 25/100 TABLET (FP) PO SCH ×2 (06:53→09:29)
[2023-05-05 07:43] VITALS: BP 163/77; PULSE 67; RESP 16; TEMP 97.4
[2023-05-05] MEDS: ENOXAPARIN NA (PORCINE) 30 MG/0.3 ML DISP.SYRIN SQ SCH (09:29)
[2023-05-05] MEDS: amLODIPine BESYLATE 5 MG TABLET (FP) PO SCH (09:29)
[2023-05-05] MEDS: AMINO ACIDS/PROTEIN HYDROLYS 30 ML LIQUID.PKT PO SCH (09:29)
[2023-05-05] MEDS: SULFAMETHOXAZOLE/TRIMETHOPRIM 800MG/160MG D.S. TABLET PO SCH (09:29)
== END 2023-05-05 09:45 | disposition home or self-care (01) | DRG 698 ==
LOC: JER 10:03 → JERBED 13:31 → J5S 18:36
PROVIDERS: ADMIT Internal Medicine; ATTEND Internal Medicine
DX: T83.511A Infection and inflammatory reaction due to indwelling urethral catheter, initial encounter (principal); E43 Unspecified severe protein-calorie malnutrition; R53.2 Functional quadriplegia; Z68.1 Body mass index [BMI] 19.9 or less, adult; I10 Essential (primary) hypertension; R62.7 Adult failure to thrive; D64.9 Anemia, unspecified; R79.89 Other specified abnormal findings of blood chemistry; N40.0 Benign prostatic hyperplasia without lower urinary tract symptoms; G20.A1 Parkinson's disease without dyskinesia, without mention of fluctuations; F02.80 Dementia in other diseases classified elsewhere, unspecified severity, without behavioral disturbance, psychotic disturbance, mood disturbance, and anxiety; Y84.6 Urinary catheterization as the cause of abnormal reaction of the patient, or of later complication, without mention of misadventure at the time of the procedure; Y92.89 Other specified places as the place of occurrence of the external cause
CPT/HCPCS: 36415; 80053; 81003; 83735; 84100; 85025; 86140; 87086; 87186; 93005; 93010; 99285-25

== ENCOUNTER 2023-06-02 18:52 | Inpatient (IN) | payer BC, OTHER ==
[2023-06-02] MEDS ORDERED: LIDOCAINE HCL 2% JELLY 6 ML TP ONE (20:12)
[2023-06-02 21:33] LABS: BASO % 0.2 % (0-2.0); EOS % 0.1 % (0-4.5); HEMATOCRIT 37.7 % (35.4-49); HEMOGLOBIN 12.4 GM/dL (11.7-16.9); LYMPH % 15.3 % (8-40); MCH 33.2 pg (25.7-33.7); MCHC 32.9 g/dl (32.0-35.9); MEAN CELL VOLUME 100.9 fl (80-96); MEAN PLT VOLUME 9.1 fl (7.5-11.1); MONO % 5.4 % (3.8-10.2); PLATELET COUNT 366 10^3/uL (134-434); RBC 3.73 M/mm3 (4.00-5.60); RDW 15.8 % (11.9-15.9); WHITE BLOOD COUNT 10.9 K/mm3 (4.0-10.0)
[2023-06-02 21:51] LABS: POTASSIUM 4.9 mmol/L (3.5-5.1)
[2023-06-02 21:54] LABS: ALBUMIN 2.8 g/dl (3.4-5.0); BLOOD UREA NITROGEN 50.2 mg/dL (7-18); MAGNESIUM 2.6 mg/dL (1.8-2.4)
[2023-06-02 21:57] LABS: CREATININE 0.5 mg/dL (0.55-1.3)
[2023-06-02 21:58] LABS: BILIRUBIN,TOTAL 0.8 mg/dL (0.2-1)
[2023-06-02] MEDS ORDERED: LACTATED RINGERS SOLUTION 1000 ML INFUS.BAG IV ONE (22:11)
[2023-06-03] MEDS ORDERED: CEFTRIAXONE 1,000 MG in DEXTROSE 5%-WATER - 50 ML IVPB ONE (00:43)
[2023-06-03] MEDS ORDERED: CEFTRIAXONE 1 GM/50 ML BAG ONE (01:07)
[2023-06-03] MEDS ORDERED: CARBIDOPA/LEVODOPA 25/100 TABLET (FP) ONE ×2 (01:21→06:35)
[2023-06-03 02:41] LABS: URINE APPEARANCE TURBID; URINE BILIRUBIN NEGATIVE (NEGATIVE); URINE COLOR BROWN; URINE GLUCOSE (UA) NEGATIVE (NEGATIVE); URINE KETONE NEGATIVE (NEGATIVE)
[2023-06-03 02:42] LABS: PH,URINE 6.5 (5.0-8.0); URINE PROTEIN 3+ (NEGATIVE)
[2023-06-03 02:43] LABS: URINE LEUK ESTERASE 4+ (NEGATIVE); URINE NITRITE NEGATIVE (NEGATIVE); URINE UROBILINOGEN 0.2 mg/dL (0.2-1.0)
[2023-06-03 03:35] LABS: EPI CELLS 3+ /uL (0-25.1); URINE BACTERIA 3+ /uL (0-1359); URINE RBC >100 /uL (0-23.9); URINE WBC >100 /uL (0-25.8)
[2023-06-03] MEDS ORDERED: POLYETHYLENE GLYCOL (HEALTHYLAX) 3350 17 GM PACKET PO PRN (04:55)
[2023-06-03] MEDS ORDERED: SENNOSIDES/DOCUSATE COMBO (SENNA PLUS) TABLET (UD) PO PRN (04:55)
[2023-06-03] MEDS: CARBIDOPA/LEVODOPA 25/100 TABLET (FP) PO SCH ×4 (06:40→19:00)
[2023-06-03] MEDS: amLODIPine BESYLATE 5 MG TABLET (FP) PO SCH (11:39)
[2023-06-03] MEDS ORDERED: CEFUROXIME AXETIL 500 MG TABLET PO SCH (14:00)
[2023-06-04] MEDS: CARBIDOPA/LEVODOPA 25/100 TABLET (FP) PO SCH ×4 (05:48→18:08)
[2023-06-04 06:56] LABS: BASO % 0.2 % (0-2.0); EOS % 0.1 % (0-4.5); HEMATOCRIT 25.2 % (35.4-49); HEMOGLOBIN 8.6 GM/dL (11.7-16.9); LYMPH % 18.7 % (8-40); MCH 34.2 pg (25.7-33.7); MCHC 34.1 g/dl (32.0-35.9); MEAN CELL VOLUME 100.4 fl (80-96); MEAN PLT VOLUME 8.6 fl (7.5-11.1); MONO % 4.5 % (3.8-10.2); NEUT % 76.5 % (42.8-82.8); PLATELET COUNT 284 10^3/uL (134-434); RBC 2.51 M/mm3 (4.00-5.60); RDW 14.8 % (11.9-15.9); WHITE BLOOD COUNT 10.7 K/mm3 (4.0-10.0)
[2023-06-04 07:15] LABS: POTASSIUM 4.2 mmol/L (3.5-5.1)
[2023-06-04 07:24] LABS: ALBUMIN 2.5 g/dl (3.4-5.0); BLOOD UREA NITROGEN 71.4 mg/dL (7-18); MAGNESIUM 2.3 mg/dL (1.8-2.4)
[2023-06-04 07:27] LABS: CREATININE 0.6 mg/dL (0.55-1.3); PHOSPHOROUS 4.2 mg/dL (2.5-4.9)
[2023-06-04 07:28] LABS: TOT PROT 5.4 g/dl (6.4-8.2)
[2023-06-04 07:40] LABS: BILIRUBIN,TOTAL 0.4 mg/dL (0.2-1)
[2023-06-04] MEDS ORDERED: CEFTRIAXONE 1 GM in DEXTROSE 5%-WATER - 50 ML IVPB SCH (10:00)
[2023-06-04] MEDS: TAMSULOSIN HCL 0.4 MG CAP PO SCH (10:14)
[2023-06-04] MEDS ORDERED: CEFTRIAXONE 1 GM/50 ML BAG ONE (10:24)
[2023-06-04] MEDS: amLODIPine BESYLATE 5 MG TABLET (FP) PO SCH (10:29)
[2023-06-04] MEDS ORDERED: PIPERACILLIN/TAZOB 3.375 GM 3.375 GM/50 ML BAG IVPB ONE (12:12)
[2023-06-04] MEDS ORDERED: PIPERACILLIN/TAZOB 3.375 GM 3.375 GM in DEXTROSE 5%-WATER - 50 ML IVPB SCH ×2 (12:15→18:00)
[2023-06-04] MEDS: LACTATED RINGERS SOLUTION 1,000 ML/1,000 ML INFUS.BAG IV SCH (12:22)
[2023-06-04 12:36] LABS: HEMATOCRIT 28.8 % (35.4-49); HEMOGLOBIN 9.6 GM/dL (11.7-16.9); MCH 33.5 pg (25.7-33.7); MCHC 33.4 g/dl (32.0-35.9); MEAN CELL VOLUME 100.2 fl (80-96); MEAN PLT VOLUME 8.7 fl (7.5-11.1); PLATELET COUNT 311 10^3/uL (134-434); RBC 2.88 M/mm3 (4.00-5.60); RDW 15.4 % (11.9-15.9); WHITE BLOOD COUNT 9.2 K/mm3 (4.0-10.0)
[2023-06-04] MEDS ORDERED: DEXTROSE 50%-WATER 25 GM/50 ML DISP.SYRIN IVPUSH ONE (15:40)
[2023-06-04 16:04] LABS: ARTERIAL BLD GAS O2 SATURATION 99.8 % (95-98); ARTERIAL BLOOD GAS BASE EXCESS 0.6 mmol/L (-2-2); ARTERIAL BLOOD GAS PO2 365.6 mmHg (80-100); ARTERIAL BLOOD GAS pH 7.491 (7.350-7.450)
[2023-06-04 16:06] LABS: ALLENS TEST POSITIVE
[2023-06-04] MEDS: PIPERACILLIN/TAZOB 3.375 GM 3.375 GM in DEXTROSE 5%-WATER - 50 ML IVPB SCH (17:32)
[2023-06-04] MEDS: DEXTROSE 50%-WATER 25 GM/50 ML DISP.SYRIN IVPUSH PRN (21:59)
[2023-06-05] MEDS: PIPERACILLIN/TAZOB 3.375 GM 3.375 GM in DEXTROSE 5%-WATER - 50 ML IVPB SCH ×3 (01:32→17:34)
[2023-06-05] MEDS: LACTATED RINGERS SOLUTION 1,000 ML/1,000 ML INFUS.BAG IV SCH ×2 (02:19→14:00)
[2023-06-05] MEDS: CARBIDOPA/LEVODOPA 25/100 TABLET (FP) PO SCH ×4 (06:01→17:35)
[2023-06-05] MEDS: DEXTROSE 50%-WATER 25 GM/50 ML DISP.SYRIN IVPUSH PRN (06:21)
[2023-06-05 10:00] LABS: POTASSIUM 3.2 mmol/L (3.5-5.1)
[2023-06-05 10:05] LABS: BASO % 0.2 % (0-2.0); CALCIUM 8.2 mg/dL (8.5-10.1); HEMATOCRIT 23.9 % (35.4-49); HEMOGLOBIN 7.8 GM/dL (11.7-16.9); LYMPH % 21.6 % (8-40); MCHC 32.8 g/dl (32.0-35.9); MEAN CELL VOLUME 100.7 fl (80-96); MEAN PLT VOLUME 8.5 fl (7.5-11.1); MONO % 4.6 % (3.8-10.2); NEUT % 73.6 % (42.8-82.8); PLATELET COUNT 274 10^3/uL (134-434); RBC 2.37 M/mm3 (4.00-5.60); RDW 15.1 % (11.9-15.9); WHITE BLOOD COUNT 8.3 K/mm3 (4.0-10.0)
[2023-06-05 10:06] LABS: ALBUMIN 2.1 g/dl (3.4-5.0); BLOOD UREA NITROGEN 64.6 mg/dL (7-18); MAGNESIUM 2.5 mg/dL (1.8-2.4)
[2023-06-05 10:09] LABS: CREATININE 0.7 mg/dL (0.55-1.3); PHOSPHOROUS 4.2 mg/dL (2.5-4.9)
[2023-06-05 10:10] LABS: BILIRUBIN,TOTAL 0.5 mg/dL (0.2-1); TOT PROT 4.8 g/dl (6.4-8.2)
[2023-06-05] MEDS: AMINO ACIDS 4.25%/D5W 1,000 ML IV SCH (10:15)
[2023-06-05] MEDS: TAMSULOSIN HCL 0.4 MG CAP PO SCH (10:16)
[2023-06-05] MEDS: amLODIPine BESYLATE 5 MG TABLET (FP) PO SCH (10:16)
[2023-06-05] MEDS: THIAMINE HCL 200 MG/2 ML VIAL IVPB SCH (12:36)
[2023-06-05 16:35] VITALS: BMI 13.1
[2023-06-06] MEDS: PIPERACILLIN/TAZOB 3.375 GM 3.375 GM in DEXTROSE 5%-WATER - 50 ML IVPB SCH ×4 (02:04→17:35)
[2023-06-06] MEDS: CARBIDOPA/LEVODOPA 25/100 TABLET (FP) PO SCH ×4 (05:06→17:35)
[2023-06-06] MEDS: TAMSULOSIN HCL 0.4 MG CAP PO SCH (09:51)
[2023-06-06] MEDS: amLODIPine BESYLATE 5 MG TABLET (FP) PO SCH (09:51)
[2023-06-06] MEDS: THIAMINE HCL 200 MG/2 ML VIAL IVPB SCH (10:06)
[2023-06-06] MEDS: AMINO ACIDS 4.25%/D5W 1,000 ML IV SCH (10:07)
[2023-06-06 10:15] LABS: BASO % 0.1 % (0-2.0); HEMATOCRIT 29.9 % (35.4-49); HEMOGLOBIN 9.7 GM/dL (11.7-16.9); LYMPH % 7.3 % (8-40); MCH 32.7 pg (25.7-33.7); MCHC 32.5 g/dl (32.0-35.9); MEAN CELL VOLUME 100.6 fl (80-96); MEAN PLT VOLUME 8.7 fl (7.5-11.1); MONO % 2.7 % (3.8-10.2); NEUT % 89.9 % (42.8-82.8); PLATELET COUNT 298 10^3/uL (134-434); RBC 2.97 M/mm3 (4.00-5.60); RDW 14.8 % (11.9-15.9); WHITE BLOOD COUNT 14.4 K/mm3 (4.0-10.0)
[2023-06-06 11:09] LABS: ALBUMIN 2.3 g/dl (3.4-5.0); BILIRUBIN,TOTAL 0.6 mg/dL (0.2-1); CREATININE 0.7 mg/dL (0.55-1.3)
[2023-06-06 11:11] LABS: BLOOD UREA NITROGEN 73.8 mg/dL (7-18); TOT PROT 5.2 g/dl (6.4-8.2)
[2023-06-06 11:13] LABS: MAGNESIUM 2.3 mg/dL (1.8-2.4)
[2023-06-06] MEDS ORDERED: CEFTRIAXONE 1 GM in DEXTROSE 5%-WATER - 50 ML IVPB SCH (12:00)
[2023-06-07] MEDS: PIPERACILLIN/TAZOB 3.375 GM 3.375 GM in DEXTROSE 5%-WATER - 50 ML IVPB SCH ×3 (01:49→17:11)
[2023-06-07] MEDS: DEXTROSE 50%-WATER 25 GM/50 ML DISP.SYRIN IVPUSH PRN (04:19)
[2023-06-07] MEDS: CARBIDOPA/LEVODOPA 25/100 TABLET (FP) PO SCH ×4 (05:08→18:18)
[2023-06-07] MEDS: TAMSULOSIN HCL 0.4 MG CAP PO SCH (08:55)
[2023-06-07 09:45] LABS: HEMOGLOBIN 10.5 GM/dL (11.7-16.9); MCHC 32.7 g/dl (32.0-35.9); MEAN CELL VOLUME 100.9 fl (80-96); MEAN PLT VOLUME 9.4 fl (7.5-11.1); PLATELET COUNT 281 10^3/uL (134-434); RBC 3.17 M/mm3 (4.00-5.60); RDW 15.1 % (11.9-15.9)
[2023-06-07 10:00] LABS: WHITE BLOOD COUNT 45.4 K/mm3 (4.0-10.0)
[2023-06-07 10:01] LABS: CHLORIDE 111 mmol/L (98-107); SODIUM 145 mmol/L (136-145)
[2023-06-07 10:12] LABS: ALBUMIN 2.2 g/dl (3.4-5.0); BLOOD UREA NITROGEN 89.3 mg/dL (7-18); CALCIUM 8.2 mg/dL (8.5-10.1); CO2 22 mmol/L (21-32); GLUCOSE,RANDOM 123 mg/dL (74-106)
[2023-06-07 10:13] LABS: MAGNESIUM 2.3 mg/dL (1.8-2.4)
[2023-06-07 10:15] LABS: SGOT/AST 79 U/L (15-37); SGPT/ALT 546 U/L (13-61)
[2023-06-07 10:17] LABS: BILIRUBIN,TOTAL 0.6 mg/dL (0.2-1)
[2023-06-07 10:18] LABS: TOT PROT 5.2 g/dl (6.4-8.2)
[2023-06-07 10:23] LABS: ALK PHOS 340 U/L (45-117); ANION GAP 12 mmol/L (4-13); POTASSIUM 2.8 mmol/L (3.5-5.1)
[2023-06-07] MEDS: AMINO ACIDS 4.25%/D5W 1,000 ML IV SCH (10:30)
[2023-06-07] MEDS: amLODIPine BESYLATE 5 MG TABLET (FP) PO SCH (10:31)
[2023-06-07] MEDS: THIAMINE HCL 200 MG/2 ML VIAL IVPB SCH (11:02)
[2023-06-07 11:39] LABS: ANISOCYTOSIS 1+; MACROCYTOSIS 0
[2023-06-07] MEDS: KCL 10 MEQ IVPB 10 MEQ/100 ML INFUS.BAG IVPB SCH ×4 (12:02→14:14)
[2023-06-07 17:37] LABS: HEMATOCRIT 28.9 % (35.4-49); HEMOGLOBIN 9.6 GM/dL (11.7-16.9); MCH 33.4 pg (25.7-33.7); MCHC 33.1 g/dl (32.0-35.9); MEAN CELL VOLUME 100.7 fl (80-96); MEAN PLT VOLUME 9.4 fl (7.5-11.1); PLATELET COUNT 228 10^3/uL (134-434); RBC 2.87 M/mm3 (4.00-5.60)
[2023-06-07 17:50] LABS: WHITE BLOOD COUNT 40.3 K/mm3 (4.0-10.0)
[2023-06-07] MEDS ORDERED: VANCOMYCIN/WATER FOR INJ (PEG) 1,000 MG/200 ML BAG IVPB ONE (18:13)
[2023-06-07 19:51] LABS: ANISOCYTOSIS 1+; MACROCYTOSIS 1+; OVALOCYTE 1+
[2023-06-07] MEDS ORDERED: GABAPENTIN 100 MG CAPSULE PO SCH (22:00)
[2023-06-08] MEDS: PIPERACILLIN/TAZOB 3.375 GM 3.375 GM in DEXTROSE 5%-WATER - 50 ML IVPB SCH ×3 (01:11→17:12)
[2023-06-08] MEDS: CARBIDOPA/LEVODOPA 25/100 TABLET (FP) PO SCH ×4 (06:30→17:19)
[2023-06-08] MEDS: TAMSULOSIN HCL 0.4 MG CAP PO SCH (08:29)
[2023-06-08 09:50] LABS: HEMATOCRIT 27.7 % (35.4-49); HEMOGLOBIN 9.3 GM/dL (11.7-16.9); MCH 33.4 pg (25.7-33.7); MCHC 33.5 g/dl (32.0-35.9); MEAN CELL VOLUME 99.8 fl (80-96); MEAN PLT VOLUME 9.9 fl (7.5-11.1); PLATELET COUNT 201 10^3/uL (134-434); RBC 2.78 M/mm3 (4.00-5.60); RDW 15.6 % (11.9-15.9)
[2023-06-08] MEDS: amLODIPine BESYLATE 5 MG TABLET (FP) PO SCH (09:56)
[2023-06-08] MEDS: AMINO ACIDS 4.25%/D5W 1,000 ML IV SCH (09:56)
[2023-06-08] MEDS: THIAMINE HCL 200 MG/2 ML VIAL IVPB SCH (09:56)
[2023-06-08 09:57] LABS: CHLORIDE 111 mmol/L (98-107); SODIUM 143 mmol/L (136-145)
[2023-06-08 10:02] LABS: CO2 22 mmol/L (21-32)
[2023-06-08 10:04] LABS: ALBUMIN 2.1 g/dl (3.4-5.0); GLUCOSE,RANDOM 86 mg/dL (74-106); MAGNESIUM 2.3 mg/dL (1.8-2.4); WHITE BLOOD COUNT 30.9 K/mm3 (4.0-10.0)
[2023-06-08 10:05] LABS: CREATININE 1.1 mg/dL (0.55-1.3)
[2023-06-08 10:06] LABS: SGOT/AST 85 U/L (15-37)
[2023-06-08 10:07] LABS: BILIRUBIN,TOTAL 0.6 mg/dL (0.2-1); SGPT/ALT 448 U/L (13-61)
[2023-06-08 10:34] LABS: ALK PHOS 281 U/L (45-117); ANION GAP 11 mmol/L (4-13); BLOOD UREA NITROGEN 113.7 mg/dL (7-18); POTASSIUM 2.8 mmol/L (3.5-5.1)
[2023-06-08 11:31] LABS: ANISOCYTOSIS 1+; MACROCYTOSIS 1+
[2023-06-08] MEDS: KCL 10 MEQ IVPB 10 MEQ/100 ML INFUS.BAG IVPB SCH ×4 (13:19→17:12)
[2023-06-08] MEDS ORDERED: SODIUM CHLORIDE 500 ML IV STA (14:58)
[2023-06-08] MEDS: SODIUM CHLORIDE 0.45% 1,000 ML IV SCH (19:58)
[2023-06-09] MEDS: PIPERACILLIN/TAZOB 3.375 GM 3.375 GM in DEXTROSE 5%-WATER - 50 ML IVPB SCH ×3 (02:59→18:04)
[2023-06-09] MEDS: CARBIDOPA/LEVODOPA 25/100 TABLET (FP) PO SCH ×2 (05:56→09:08)
[2023-06-09 08:55] LABS: HEMOGLOBIN 9.5 GM/dL (11.7-16.9); MCH 33.6 pg (25.7-33.7); MCHC 33.8 g/dl (32.0-35.9); MEAN CELL VOLUME 99.3 fl (80-96); PLATELET COUNT 201 10^3/uL (134-434); RBC 2.82 M/mm3 (4.00-5.60); RDW 15.5 % (11.9-15.9); WHITE BLOOD COUNT 23.5 K/mm3 (4.0-10.0)
[2023-06-09] MEDS: amLODIPine BESYLATE 5 MG TABLET (FP) PO SCH (09:08)
[2023-06-09] MEDS: TAMSULOSIN HCL 0.4 MG CAP PO SCH (09:08)
[2023-06-09 09:28] LABS: CHLORIDE 111 mmol/L (98-107); POTASSIUM 3.7 mmol/L (3.5-5.1); SODIUM 143 mmol/L (136-145)
[2023-06-09] MEDS: AMINO ACIDS 4.25%/D5W 1,000 ML IV SCH (09:28)
[2023-06-09] MEDS: THIAMINE HCL 200 MG/2 ML VIAL IVPB SCH (09:32)
[2023-06-09 09:38] LABS: ALBUMIN 2.2 g/dl (3.4-5.0); ANION GAP 10 mmol/L (4-13); CALCIUM 8.1 mg/dL (8.5-10.1); CO2 22 mmol/L (21-32); GLUCOSE,RANDOM 85 mg/dL (74-106); MAGNESIUM 2.4 mg/dL (1.8-2.4)
[2023-06-09 09:40] LABS: SGPT/ALT 407 U/L (13-61)
[2023-06-09 09:41] LABS: CREATININE 0.9 mg/dL (0.55-1.3); SGOT/AST 66 U/L (15-37)
[2023-06-09 09:42] LABS: BILIRUBIN,TOTAL 0.8 mg/dL (0.2-1); TOT PROT 5.1 g/dl (6.4-8.2)
[2023-06-09] MEDS: SODIUM CHLORIDE 0.45% 1,000 ML IV SCH ×2 (09:42→18:04)
[2023-06-09 09:43] LABS: ALK PHOS 267 U/L (45-117)
[2023-06-09 09:46] LABS: BLOOD UREA NITROGEN 118.4 mg/dL (7-18)
[2023-06-09 11:47] LABS: ANISOCYTOSIS 0; MACROCYTOSIS 0
[2023-06-09 14:18] VITALS: RESP 18
[2023-06-10] MEDS: PIPERACILLIN/TAZOB 3.375 GM 3.375 GM in DEXTROSE 5%-WATER - 50 ML IVPB SCH ×2 (02:46→11:20)
[2023-06-10 08:17] VITALS: BP 134/107; PULSE 95; TEMP 98.2
== END 2023-06-10 12:17 | disposition home or self-care (01) | DRG 698 ==
LOC: JER 18:52 → JERBED 06-03 01:27 → J8W 06-04 14:49
PROVIDERS: ADMIT Internal Medicine; ATTEND Nurse Practitioner Family
DX: T83.518A Infection and inflammatory reaction due to other urinary catheter, initial encounter (principal); E43 Unspecified severe protein-calorie malnutrition; R53.2 Functional quadriplegia; J69.0 Pneumonitis due to inhalation of food and vomit; N39.0 Urinary tract infection, site not specified; Z68.1 Body mass index [BMI] 19.9 or less, adult; R64 Cachexia; Y83.9 Surgical procedure, unspecified as the cause of abnormal reaction of the patient, or of later complication, without mention of misadventure at the time of the procedure; Y92.89 Other specified places as the place of occurrence of the external cause; I10 Essential (primary) hypertension; F03.90 Unspecified dementia, unspecified severity, without behavioral disturbance, psychotic disturbance, mood disturbance, and anxiety; N31.9 Neuromuscular dysfunction of bladder, unspecified; G20.A1 Parkinson's disease without dyskinesia, without mention of fluctuations; N18.9 Chronic kidney disease, unspecified; B96.20 Unspecified Escherichia coli [E. coli] as the cause of diseases classified elsewhere; E87.6 Hypokalemia; R62.7 Adult failure to thrive; R33.9 Retention of urine, unspecified; L89.152 Pressure ulcer of sacral region, stage 2; R74.01 Elevation of levels of liver transaminase levels; N40.1 Benign prostatic hyperplasia with lower urinary tract symptoms
CPT/HCPCS: 0241U-QW; 36415; 36600; 71045-TC-FY; 76775-TC; 76856-TC; 80048; 80053; 81003; 82272; 82803; 82962; 83735; 84100; 85025; 85027; 86140; 87040; 87086; 87186; 93005; 93010; 99285-25; G0480